=== PATIENT | female | born 1960 | race Caucasian/White ===

== ENCOUNTER → 2017-10-31 09:53 | Outpatient (CLI) | payer OTHER, SELFPAY ==
--- NOTE | 2017-10-31 10:04 | DI.RAD.S_ITS ---
PROCEDURE: XR KNEE RT 3V INDICATIONS: Right knee pain and swelling TECHNIQUE: L3 views of the knee were acquired. COMPARISON: None. FINDINGS: Bones: No fractures or dislocations. No suspicious bony lesions. Soft tissues: No joint effusion. No suspicious soft tissue calcifications. IMPRESSION: No acute radiographic findings. If pain persists, repeat study in 5-7 days is recommended to exclude occult fracture. Dictated by: Grecia Shabazz M.D. on 10/31/2017 at 10:33 Approved by: Grecia Shabazz M.D. on 10/31/2017 at 10:35
== END ==
PROVIDERS: PCP Family Medicine; Visit Provider Physician Assistant
DX: M25.461 Effusion, right knee (principal); M25.561 Pain in right knee
CPT/HCPCS: 73562

== ENCOUNTER → 2017-11-04 10:49 | Outpatient (CLI) | payer OTHER, SELFPAY ==
--- NOTE | 2017-11-04 | DI.MG.S_ITS ---
BILATERAL DIGITAL SCREENING MAMMOGRAM 3D/2D WITH CAD: 11/04/2017 CLINICAL: Routine screening. Family history of breast cancer. Comparison is made to exams dated: 10/30/2016 mammogram, 12/18/2014 mammogram - [facility], and 09/12/2013 mammogram - [facility]. The tissue of both breasts is heterogeneously dense. This may lower the sensitivity of mammography. Current study was also evaluated with a Computer Aided Detection (CAD) system. No significant masses, calcifications, or other findings are seen in either breast. There has been no significant interval change. IMPRESSION: NEGATIVE There is no mammographic evidence of malignancy. A 1 year screening mammogram is recommended. This exam was interpreted at Station ID: [id number]. NOTE: For mammograms, a report in lay terms will be sent to the patient. Approximately 15% of breast malignancies will not be visualized mammographically. In the management of a palpable breast mass, a negative mammogram must not discourage biopsy of a clinically suspicious lesion. Electronically Signed By: Dontrell casillas/mora:11/05/2017 01:20:44 copy to: RADHA PENG letter sent: Normal Exam ACR BI-RADS Category 1: Negative [id number]
== END ==
PROVIDERS: PCP Family Medicine; Visit Provider Family Medicine
DX: Z12.31 Encounter for screening mammogram for malignant neoplasm of breast (principal); Z80.3 Family history of malignant neoplasm of breast
CPT/HCPCS: 77063; 77067

== ENCOUNTER → 2017-11-05 08:37 | Outpatient (CLI) | payer OTHER, SELFPAY ==
--- NOTE | 2017-11-05 08:40 | DI.US.S_ITS ---
PROCEDURE: US PERIPH VENOUS LOW EXTREM RT INDICATIONS: right calf pain TECHNIQUE: Real-time imaging, as well as color and pulse Doppler interrogation, were performed of the lower extremity deep veins from the inguinal ligament to the popliteal fossa. COMPARISON: None. FINDINGS: The deep veins are normally compressible, and free of intraluminal thrombus. Color and pulse Doppler demonstrate normal phasic intraluminal flow. There is normal augmentation response to distal compression maneuver. IMPRESSION: No evidence of deep vein thrombosis involving the right lower extremity. Dictated by: Vivi Lopes MD, PhD on 11/05/2017 at 10:28 Approved by: Vivi Lopes MD, PhD on 11/05/2017 at 10:28
== END ==
PROVIDERS: PCP Family Medicine; Visit Provider Family Medicine
DX: M79.661 Pain in right lower leg (principal)
CPT/HCPCS: 93971

== ENCOUNTER → 2017-11-10 06:43 | Outpatient (CLI) | payer OTHER, SELFPAY ==
--- NOTE | 2017-11-10 06:44 | DI.MRI.S_ITS ---
PROCEDURE: MR KNEE RT WO CON INDICATIONS: painful back of right knee TECHNIQUE: Noncontrast sagittal PD fast spin echo and T2 fast spin echo with fat saturation, sagittal 3-D FLASH with fat saturation; coronal T1 spin echo and PD fast spin echo with fat saturation, and axial PD fast spin echo with fat saturation through the knee. COMPARISON: [facility], CR, XR KNEE RT 3V, 10/31/2017, 9:46. FINDINGS: Image quality: Excellent. Menisci: There is a flap tear involving the body and posterior horn of the lateral meniscus which extends to the superior articular surface. The medial meniscus demonstrates normal morphology and internal signal. The meniscal root ligaments appear intact. Cruciate ligaments: The anterior and posterior cruciate ligaments appear intact. Medial structures: The medial collateral ligament appears intact. The posterior oblique ligament, semimembranosus tendon insertions, oblique popliteal ligament, and meniscocapsular junction appear intact. Visualized portions of the pes anserinus tendons appear normal. No abnormal bursal fluid. Lateral structures: The lateral collateral ligament, long and short heads of the biceps femoris tendon appear intact. The popliteus tendon appears normal; the popliteofibular ligament appears intact. The posterosuperior and anteroinferior popliteomeniscal fascicles appear intact. The arcuate and fabellofibular ligaments appear intact, on either side of the lateral inferior geniculate artery. Iliotibial band appears normal. Anterior structures: The quadriceps and patellar tendons appear intact. Patellar alignment is normal. No femoral trochlear dysplasia or ventral trochlear prominence. No edema in the infrapatellar fat pad. Bones and cartilage: No bone marrow contusions or fractures. The cartilage of the medial and lateral femorotibial compartments appears normal in thickness. Thinning and fissuring of the articular cartilage of the medial facet of the patella. Joint space: There is trace joint effusion. Small popliteal cyst. Normal appearing synovial plicae are incidentally noted. IMPRESSION: 1. Lateral meniscus tear. 2. Trace joint effusion. 3. Small popliteal cyst. 4. Articular cartilage degenerative changes involving the medial facet of the patella. Dictated by: Vivi Lopes MD, PhD on 11/10/2017 at 11:33 Approved by: Vivi Lopes MD, PhD on 11/12/2017 at 7:20
== END ==
PROVIDERS: PCP Family Medicine; Visit Provider Family Medicine
DX: M25.561 Pain in right knee (principal); S83.281A Other tear of lateral meniscus, current injury, right knee, initial encounter; M71.21 Synovial cyst of popliteal space [Baker], right knee
CPT/HCPCS: 73721

== ENCOUNTER → 2018-04-06 09:16 | Outpatient (CLI) | payer OTHER, SELFPAY ==
--- NOTE | 2018-04-06 09:19 | DI.RAD.S_ITS ---
PROCEDURE: XR FOOT LT MIN 3V INDICATIONS: left middle toe/foot pain TECHNIQUE: 3 views of the foot were acquired. COMPARISON: None. FINDINGS: Bones: No fractures or dislocations. No suspicious bony lesions. Mild interphalangeal degenerative spurring. Soft tissues: No tibiotalar joint effusion. Achilles tendon appears normal. IMPRESSION: No fracture. If the patient's symptoms persist, further assessment with MRI can be performed. Dictated by: Wolf Hagen M.D. on 04/06/2018 at 9:54 Approved by: Wolf Hagen M.D. on 04/06/2018 at 9:56
== END ==
PROVIDERS: PCP Family Medicine; Visit Provider Family Medicine
DX: M79.672 Pain in left foot (principal)
CPT/HCPCS: 73630

== ENCOUNTER → 2018-06-22 11:28 | Outpatient (CLI) | payer OTHER, SELFPAY ==
[2018-06-24 17:28] LABS: Fecal Immunochemical Test NOT DETECTED (NOT DETECTED)
== END ==
PROVIDERS: PCP Family Medicine; Visit Provider Family Medicine
DX: Z12.11 Encounter for screening for malignant neoplasm of colon (principal)
CPT/HCPCS: 82274

== ENCOUNTER → 2018-09-20 13:43 | Outpatient (CLI) | payer OTHER, SELFPAY | PROVIDERS: PCP Family Medicine; Visit Provider Registered Nurse | DX: M81.0 Age-related osteoporosis without current pathological fracture (principal); M85.852 Other specified disorders of bone density and structure, left thigh; M85.851 Other specified disorders of bone density and structure, right thigh; Z78.0 Asymptomatic menopausal state | CPT/HCPCS: 77080 ==

== ENCOUNTER → 2018-12-03 13:22 | Outpatient (CLI) | payer OTHER, SELFPAY ==
--- NOTE | 2018-12-03 13:25 | DI.RAD.S_ITS ---
PROCEDURE: XR ELBOW LT MIN 3V INDICATIONS: left elbow pain TECHNIQUE: 3 views of the elbow were acquired. COMPARISON: None. FINDINGS: Bones: No fractures or dislocations. No suspicious bony lesions. Chronic spurring seen at the common extensor origin Soft tissues: No elbow joint effusion. No suspicious soft tissue calcifications. IMPRESSION: No fracture. Findings suggest chronic lateral epicondylitis syndrome Dictated by: Wolf Hagen M.D. on 12/03/2018 at 16:43 Approved by: Wolf Hagen M.D. on 12/03/2018 at 16:44
== END ==
PROVIDERS: PCP Family Medicine; Visit Provider Family Medicine
DX: M25.522 Pain in left elbow (principal)
CPT/HCPCS: 73080

== ENCOUNTER → 2018-12-13 15:27 | Outpatient (CLI) | payer OTHER, SELFPAY ==
--- NOTE | 2018-12-13 | DI.MG.S_ITS ---
BILATERAL DIGITAL SCREENING MAMMOGRAM 3D/2D WITH CAD: 12/13/2018 CLINICAL: Routine screening. Family history of breast cancer. Comparison is made to exams dated: 11/04/2017 mammogram, 10/30/2016 mammogram, 12/18/2014 mammogram - [facility], and 09/12/2013 mammogram - [facility]. The tissue of both breasts is heterogeneously dense. This may lower the sensitivity of mammography. Current study was also evaluated with a Computer Aided Detection (CAD) system. No significant masses, calcifications, or other findings are seen in either breast. There has been no significant interval change. IMPRESSION: NEGATIVE There is no mammographic evidence of malignancy. A 1 year screening mammogram is recommended. This exam was interpreted at Station ID: [id number]. NOTE: For mammograms, a report in lay terms will be sent to the patient. Approximately 15% of breast malignancies will not be visualized mammographically. In the management of a palpable breast mass, a negative mammogram must not discourage biopsy of a clinically suspicious lesion. Electronically Signed By: Dontrell casillas/mora:12/13/2018 19:10:13 letter sent: Normal Exam ACR BI-RADS Category 1: Negative [id number]
== END ==
PROVIDERS: PCP Family Medicine; Visit Provider Family Medicine
DX: Z12.31 Encounter for screening mammogram for malignant neoplasm of breast (principal); Z80.3 Family history of malignant neoplasm of breast
CPT/HCPCS: 77063; 77067

== ENCOUNTER → 2019-06-16 09:28 | Outpatient (CLI) | payer OTHER, SELFPAY ==
--- NOTE | 2019-06-16 09:30 | DI.RAD.S_ITS ---
PROCEDURE: XR LUMBAR SPINE 2-3V INDICATIONS: low back pain TECHNIQUE: 3 views of the lumbar spine were acquired. COMPARISON: [facility], [place], XR HIP W PEL IF DONE LT 2V, 06/16/2019, 9:27. [facility], HA, L-SPINE 2-3 VIEWS, 12/30/2016, 10:59. FINDINGS: Bones: 5 [id number] vertebrae are present. Minimal dextroconvex cervical lumbar scoliotic curvature is seen. No focal AP alignment abnormality is seen. No vertebral body compression fractures. No suspicious bony lesions. The disc heights are well-preserved. Lower lumbar spine facet arthropathy is seen. Soft tissues: Overlying bowel gas pattern is normal. No suspicious soft tissue calcifications. Hypodense material can be seen within the stomach. IMPRESSION: Mild, age-appropriate degenerative changes are seen, with lower lumbar spine facet arthropathy. Dictated by: Josr Noriega M.D. on 06/16/2019 at 8:58 Approved by: Josr Noriega M.D. on 06/16/2019 at 8:59
--- NOTE | 2019-06-16 09:30 | DI.RAD.S_ITS ---
PROCEDURE: XR HIP W PEL IF DONE LT 2V INDICATIONS: left hip pain TECHNIQUE: AP pelvis with lateral view(s) of the left hip(s). COMPARISON: [facility], HA, XR LUMBAR SPINE 2-3V, 06/16/2019, 9:27. [facility], HA, L-SPINE 2-3 VIEWS, 12/30/2016, 10:59. (A prior pelvis plain film from 2008 is not available from the archive at the time of this dictation.) FINDINGS: Bones: No fractures or dislocations. Pelvic ring appears intact. No suspicious bony lesions. There is mild superior joint space narrowing seen of the left hip, with associated remodeling changes with subchondral sclerosis and osteophyte formation. Soft tissues: The visualized bowel gas pattern is normal. No suspicious soft tissue calcifications. IMPRESSION: Mild degenerative change. Dictated by: Josr Noriega M.D. on 06/16/2019 at 8:51 Approved by: Josr Noriega M.D. on 06/16/2019 at 8:58
== END ==
PROVIDERS: PCP Family Medicine; Referring Provider Family Medicine; Visit Provider Family Medicine
DX: M25.552 Pain in left hip (principal); M54.5 Low back pain; M47.816 Spondylosis without myelopathy or radiculopathy, lumbar region
CPT/HCPCS: 72100; 73502

== ENCOUNTER → 2019-08-12 07:32 | Outpatient (CLI) | payer OTHER, SELFPAY ==
[2019-08-12 08:09] LABS: Add Manual Diff / Slide Review NO; Basophils Absolute Auto 0 /uL (0-100); Basophils Percent Auto 0.5 % (0-2); Eosinophils Absolute Auto 100 /uL (0-450); Eosinophils Percent Auto 2.2 % (2-4); Hematocrit 39.8 % (36-46); Hemoglobin 13.8 g/dL (12.0-16.0); Lymphocytes Absolute Auto 2100 /uL (1100-4500); Lymphocytes Percent Auto 43.9 % (25-40); Mean Corpuscular HGB Conc 34.7 % (30-36); Mean Corpuscular Hemoglobin 31.2 PG (26-34); Mean Corpuscular Volume 89.8 fL (80-100); Monocytes Absolute Auto 300 /uL (0-900); Monocytes Percent Auto 6.4 % (3-14); Neutrophils Absolute Auto 2300 /uL (1500-7000); Platelet Count 157 X10^3/uL (150-400); Red Blood Cell Count 4.43 X10^6/uL (4.0-5.2); Red Cell Distribution Width 13.2 % (11.6-14.8); White Blood Cell Count 4.8 X10^3/uL (4.5-11.0)
[2019-08-12 08:27] LABS: Alanine Aminotransferase 18 IU/L (<35); Albumin 4.6 g/dL (3.5-5.0); Albumin Globulin Ratio 1.4 (1.0-2.8); Alkaline Phosphatase 66 U/L (38-126); Aspartate Aminotransferase 28 IU/L (14-36); BUN Creatinine Ratio 19.1 (6-22); Bilirubin Total 0.6 mg/dL (0.2-1.3); Blood Urea Nitrogen 13 mg/dL (7-17); Calcium 9.3 mg/dL (8.4-10.2); Carbon Dioxide 29 mmol/L (22-32); Chloride 103 mmol/L (98-107); Cholesterol 224 mg/dL (140-199); Estimated Glomerular Filt Rate > 60.0 mL/min (>60); Globulin 3.4 g/dL (1.7-4.1); Glucose 93 mg/dL (80-110); HDL Cholesterol 90 mg/dL (40-60); HEMOLYSIS < 15 (0-50); LDL Cholesterol Calculated 115 mg/dL (<100); Potassium 4.1 mmol/L (3.4-5.1); Sodium 139 mmol/L (137-145); Triglycerides 95 mg/dL (35-150)
[2019-08-12 09:35] LABS: Thyroid Stimulating Hormone 1.35 uIU/mL (0.47-4.68)
== END ==
PROVIDERS: PCP Family Medicine; Referring Provider Family Medicine; Visit Provider Family Medicine
DX: G89.29 Other chronic pain (principal); M54.5 Low back pain
CPT/HCPCS: 36415; 80053; 80061; 84443; 85025

== ENCOUNTER → 2019-08-15 13:54 | Outpatient (CLI) | payer OTHER, SELFPAY ==
[2019-08-16 14:36] LABS: Fecal Immunochemical Test Negative (Negative)
== END ==
PROVIDERS: PCP Family Medicine; Referring Provider Family Medicine; Visit Provider Family Medicine
DX: G89.29 Other chronic pain (principal); M54.5 Low back pain
CPT/HCPCS: 82274

== ENCOUNTER → 2019-09-05 11:38 | Outpatient (CLI) | payer OTHER, SELFPAY ==
--- NOTE | 2019-09-05 11:40 | DI.MRI.S_ITS ---
PROCEDURE: MR LUMBAR SPINE WO CON INDICATIONS: Pain TECHNIQUE: Noncontrast sagittal T1 spin echo and T2 fast echo, sagittal STIR, axial T1 and T2 fast spin echo through the lumbar spine. In cases with scoliosis, additional coronal T2 fast spin echo may be performed. COMPARISON: [facility], CR, XR LUMBAR SPINE 2-3V, 06/16/2019, 9:27. FINDINGS: Image quality: Excellent. Alignment and Curvature: 5 lumbar type vertebral bodies are present by plain film. Mild grade 1 retrolisthesis of L1 on L2, L2 on L3, L3 on L4, L4-L5, and L5 on S1. Bone Marrow: Marrow is of normal overall signal. No acute vertebral body compression fractures. There is minimal reactive signal within the endplates adjacent to the the L1-L2, L2-L3, L3-L4, and L4-L5 intervertebral discs. T11 and T12 hemangiomata. Spinal Cord: Conus medullaris terminates at the L2-L3 disc space level. Visualized cord demonstrates normal signal and size. Paraspinous Soft Tissues: No paravertebral masses. L1-L2: Mild disc height loss and desiccation. Mild diffuse disc bulge. Mild facet and ligamentum flavum hypertrophy. Mild canal stenosis. No foraminal stenosis. L2-L3: Mild disc desiccation. Mild diffuse disc bulge. Mild facet and ligamentum flavum hypertrophy. Mild canal stenosis. Mild bilateral foraminal stenosis. L3-L4: Mild disc desiccation and diffuse disc bulge. Mild facet and ligamentum flavum hypertrophy. Mild epidural lipomatosis. Mild canal stenosis. Mild bilateral foraminal stenosis. L4-L5: Mild disc desiccation a diffuse disc bulge. Mild facet and ligamentum flavum hypertrophy. Mild epidural lipomatosis. Mild canal stenosis. Mild bilateral foraminal stenosis. L5-S1: Mild diffuse disc bulge. Mild bilateral facet hypertrophy. Mild canal stenosis. Mild bilateral foraminal stenosis. IMPRESSION: 1. Multilevel degenerative disc and facet disease, as well as ligamentum flavum hypertrophy and epidural lipomatosis. 2. Mild multilevel canal and foraminal stenoses. No neural impingement. Dictated by: Macy Wolfe M.D. on 09/05/2019 at 12:50 Approved by: Macy Wolfe M.D. on 09/05/2019 at 13:13
== END ==
PROVIDERS: PCP Family Medicine; Referring Provider Family Medicine; Visit Provider Family Medicine
DX: M54.5 Low back pain (principal); M51.36 Other intervertebral disc degeneration, lumbar region; M48.061 Spinal stenosis, lumbar region without neurogenic claudication; E88.2 Lipomatosis, not elsewhere classified; G89.29 Other chronic pain
CPT/HCPCS: 72148

== ENCOUNTER → 2019-10-05 13:11 | Outpatient (CLI) | payer OTHER, SELFPAY | PROVIDERS: PCP Family Medicine; Referring Provider Family Medicine; Visit Provider Family Medicine | DX: M81.0 Age-related osteoporosis without current pathological fracture (principal); Z78.0 Asymptomatic menopausal state; Z82.62 Family history of osteoporosis; Z87.891 Personal history of nicotine dependence | CPT/HCPCS: 77080 ==

== ENCOUNTER 2019-11-09 09:45 | Outpatient (RCR) | payer OTHER, SELFPAY ==
--- NOTE | 2019-09-28 16:38 | PT.OIE ---
Current Diagnoses Low back pain (09/28/19) Weakness (09/28/19) Past Surgical History History of third molar tooth extraction History of tonsillectomy Visit Care Team Role Provider Type Jim Galdamez MD Attending Provider Physician Primary Care Provider Referring Provider Specialty: Family Practice Address: [address] [place] [address], [id number] Email: [email or web address] Physical Therapy Initial Evaluation PT-OP-A Visit Information Start: 09/28/19 10:36 Freq: Status: Active Protocol: Document 09/28/19 13:58 AW (Rec: 09/28/19 14:13 AW [email or web address]) Out-Patient Physical Therapy Visit Information Visit Information Visit Type Initial Evaluation Visit Start Time 10:30 Visit Stop Time 11:15 Total Visit Minutes 45 Visit Number 03/26 Evaluation Information Evaluation Date 09/28/19 Precautions Precautions osteoporosis PT-OP-B Current Condition Start: 09/28/19 10:36 Freq: Status: Active Protocol: Document 09/28/19 13:58 AW (Rec: 09/28/19 14:13 AW [email or web address]) Current Condition History of Current Condition Onset Date June 2019 Current Complaints low back pain, left hip pain History of Current Condition Hannah describes years of intermittent back pain which seems to be increasing in intensity and frequency. She states that she gets a sharp, grabbing pain which is often the beginning of being fairly incapacitated for 4-14 days. Just two days ago, she was reaching sideways toward her spouse who pulled her toward him for a hug and she felt the sharp, grabbing pain. Typically, this would have made it difficult for her to get in and out of bed, on and off the toilet for at least four days with limited capacity for up to two weeks. This recent event has had been less painful. The sharp pain is as bad as 9/10. She presents today with manageable 2/10 pain. Sitting is most problematic. If she sits too long, changing position is difficult and painful. Prior Treatments and Tests MRI 09/05/19: 1. Multilevel degenerative disc and facet disease, as well as ligamentum flavum hypertrophy and epidural lipomatosis. 2. Mild multilevel canal and foraminal stenoses. No neural impingement. Future Testing and Treatments Planned none identified Treatment Goals Patient/Caregiver Goals Pt hopes to be able to participate in dancing classes with increased confidence and less pain. She and her spouse purchased a travel trailer and hope to travel more but her sitting tolerance is limited. Prior Functional Status Baseline Function- ADL's Independent Baseline Function- Mobility Independent Baseline Function- Gait IND no device Baseline Function- Recreation/Hobbies Pt does regular stretches for her low back and hips. Pt could sit for several hours prior to injury. Current Functional Impairments (Reported) Functional Limitations- ADL's Difficulty with toilet transfers during painful episodes Functional Limitations- Mobility/Gait Difficulty with bed mobility during painful episodes. Functional Limitations- Recreation/ Pt unable to sit >30 minutes Hobbies due to increased pain. PT-OP-C Subjective Start: 09/28/19 10:36 Freq: Status: Active Protocol: Document 09/28/19 13:58 AW (Rec: 09/28/19 14:13 AW [email or web address]) Patient Questionnaires Oswestry Low Back Index Oswestry Score 36 Oswestry Impairment 20 to 39% Impaired (Score 20- 39) OP-PT Pain Assessment Pain Assessment Grid Paper Pain Assessment Grid Completed Yes Location low back and left hip Pain Location Details low back, left hip Intensity 2 Scale Used Numeric (0 - 10) Pain Aggravating Factors Position,Changing Position, Sitting Pain Alleviating Factors Cold,Heat PT-OP-D Balance Start: 09/28/19 10:36 Freq: Status: Active Protocol: Document 09/28/19 16:07 AW (Rec: 09/28/19 16:37 AW [email or web address]) OP-PT Balance Assessment Sitting Balance Static Sitting Balance Ability Normal Dynamic Sitting Balance Ability Normal Standing Balance Static Standing Balance Ability Normal Dynamic Standing Balance Ability Normal Balance Tests Single Limb Standing Single Limb- Right 20 sec Single Limb- Left 20 sec [place] Fall Scale Copyright Permission PT-OP-F Manual Assessment Start: 09/28/19 10:36 Freq: Status: Active Protocol: Document 09/28/19 16:07 AW (Rec: 09/28/19 16:37 AW [email or web address]) Manual Assessments Soft Tissue Assessment Soft Tissue Mobility Assessment Hypertonicity of bilateral paraspinals ~L2, L3. Tight gluteals left hip Joint Mobility Assessment Joint Mobility Assessment Hypomobility of lower lumbar segments on assessment of A/P glides PT-OP-H Neuro Start: 09/28/19 10:36 Freq: Status: Active Protocol: Document 09/28/19 16:07 AW (Rec: 09/28/19 16:37 AW [email or web address]) Sensation Evaluation Gross Sensation Gross Sensation WNL Deep Tendon Reflex & Clonus Assessment Deep Tendon Reflex Bilateral Achilles Deep Tendon Reflex 2+ Normal Bilateral Patellar Deep Tendon Reflex 2+ Normal PT-OP-K Range of Motion Start: 09/28/19 10:36 Freq: Status: Active Protocol: Document 09/28/19 16:07 AW (Rec: 09/28/19 16:37 AW [email or web address]) Lumbar Spine Range of Motion Lumbar Spine Active Degrees Testing Position Standing Flexion 65 Extension 10 Comments Lateral flexion with fingertips to 5 above knee joint line bilaterally. 80% of normal rotation in standing and seated. Hip Goniometric Range of Motion Hip Right Active Hip ROM WFL Yes Hip ROM Limitations Comments AROM and PROM WNL bilaterally with no imblance of external and internal rotation. PT-OP-L Special Tests Start: 09/28/19 10:36 Freq: Status: Active Protocol: Document 09/28/19 16:07 AW (Rec: 09/28/19 16:37 AW [email or web address]) Special Tests Lumbar Spine Special Tests Other- 1 Test Results distraction - relieving Homero Test Results negative for hip flexor involvement bilaterally Straight Leg Raise Test Results able to perform without pain provocation Compression Test Results slightly provocative Hip Special Tests Scour Test Test Results negative bilaterally PT-OP-M Strength Start: 09/28/19 10:36 Freq: Status: Active Protocol: Document 09/28/19 16:07 AW (Rec: 09/28/19 16:37 AW [email or web address]) Hip Strength Hip Manual Muscle Testing Left Flexion (L2) 4 Good Extension (S1) 4- Good- Abduction 4- Good- Adduction 4- Good- External Rotation 4+ Good+ Internal Rotation 4+ Good+ Comments R LE tested same as left Knee Strength Knee Manual Muscle Testing Left Flexion (S2) 4+ Good+ Extension (L3) 5 Normal PT-OP-Q Treatments Start: 09/28/19 10:36 Freq: Status: Active Protocol: Document 09/28/19 16:07 AW (Rec: 09/28/19 16:37 AW [email or web address]) Therapeutic Exercises Prone Exercises child's pose Prone Exercise Name child's popse Reps/Minutes 30 sec x 4 Comments cues to walk hands left and right for more specific stretch Sitting Exercises seated triceps extension Sitting Exercise Name seated triceps extension Reps/Minutes 5 sec hold x 10 Comments for lumbar distraction in sitting scapular retraction Sitting Exercise Name scapular retraction Reps/Minutes 10 reps Comments for focus on sitting posture to improve sitting tolerance PT-OP-T Assessment and Plan Start: 09/28/19 10:36 Freq: Status: Active Protocol: Document 09/28/19 16:07 AW (Rec: 09/28/19 16:37 AW [email or web address]) Physical Therapy Assessment Rehab Potential Rehabilitation Potential Good Evaluation Complexity Number of Personal Factors/Comorbidities 1-2 Number of Body Systems Impaired 1-2 Clinical Presentation at Evaluation Stable Impairments Impairments Activity Tolerance,Functional Activities,Functional Mobility ,Gait,Pain,Posture,Soft Tissue Mobility,Strength Other Impairments osteoporosis Goals Four Impairment impaired daily function Short Term Goal (STG) Pt will score 30 or less on modified Oswestry to demonstrate improved daily function STG Duration 10/26/19 Alf Goal (LTG) Pt will score 20 or less on modified Oswestry to demonstrate improved daily function LTG Duration 12/21/19 Three Impairment Pt unable to tolerate sitting long periods Short Term Goal (STG) Pt will be able to sit 30 minutes without increase in pain >1 point on 10-point scale STG Duration 10/26/19 [employer] Goal (LTG) Pt will be able to sit 60 minutes without increase in pain >1 point on 10-point scale LTG Duration 12/21/19 Two Impairment Pt unable to participate in hiking as she would like Short Term Goal (STG) Pt will hike 1/2 mile on uneven terrain without increase in pain >1 point on 10-point scale STG Duration 10/26/19 Alf Goal (LTG) Pt will hike 2 miles on uneven terrain without increase in pain >1 point on 10-point scale LTG Duration 12/21/19 One Impairment Pt has limited HEP Short Term Goal (STG) Pt will be independent with HEP for support of therapy services provided in clinic STG Duration 10/26/19 [employer] Goal (LTG) Pt will be independent with maintenance HEP. LTG Duration 12/21/19 Assessment Summary Assessment Hannah is a 59 yo woman who presents to outpatient PT as a low-complexity evaluation with complaint of fairly irritable low back pain. She describes distinct episodes of pain which render her less independent with self care and decrease her independent mobility. On evaluation, her hip mobility is within normal limits; lower lumbar segments are hypomobile on A/P assessment. Strength in bilateral hips is impaired. Pt would benefit from outpatient PT to address strength impairments and to increase mobility of lumbar segments for reduction of pain symptoms and return to desired activities. Physical Therapy Plan Frequency and Duration Frequency of Treatment 1-2x/week Duration of Treatment 12 weeks Plan of Care Start Date 09/28/19 Plan of Care End Date 12/21/19 Therapeutic Interventions Therapeutic Interventions Balance Training,Gait Training ,Home Exercise Program,Joint Mobilizations,Manual Therapy, Neuromuscular Re-education, Patient/Caregiver Education, Self-Care/Home Management,Soft Tissue Mobilization, Therapeutic Activities, Therapeutic Exercises Modalities Cold Pack/Ice Massage,Hot Packs Next Visit Focus/Plan Next Note Type Treatment Note Next Visit Plan assess response to HEP; STM for lumbar paraspinals and gluteals; initiate strength training for bilateral hips
--- NOTE | 2019-09-28 16:38 | PT.OPPOC ---
Physical, Occupational & Speech Therapy At [facility] Current Diagnoses Low back pain (09/28/19) Weakness (09/28/19) Visit Care Team Role Provider Type Jim Galdamez MD Attending Provider Physician Primary Care Provider Referring Provider Specialty: Family Practice Address: [address] [place] [address], [id number] Email: [email or web address] Plan Of Care PT-OP-T Assessment and Plan Start: 09/28/19 10:36 Freq: Status: Active Protocol: Document 09/28/19 16:07 AW (Rec: 09/28/19 16:37 AW [email or web address]) Physical Therapy Assessment Rehab Potential Rehabilitation Potential Good Evaluation Complexity Number of Personal Factors/Comorbidities 1-2 Number of Body Systems Impaired 1-2 Clinical Presentation at Evaluation Stable Impairments Impairments Activity Tolerance,Functional Activities,Functional Mobility ,Gait,Pain,Posture,Soft Tissue Mobility,Strength Other Impairments osteoporosis Goals Four Impairment impaired daily function Short Term Goal (STG) Pt will score 30 or less on modified Oswestry to demonstrate improved daily function STG Duration 10/26/19 Half-Way Goal (LTG) Pt will score 20 or less on modified Oswestry to demonstrate improved daily function LTG Duration 12/21/19 Three Impairment Pt unable to tolerate sitting long periods Short Term Goal (STG) Pt will be able to sit 30 minutes without increase in pain >1 point on 10-point scale STG Duration 10/26/19 Employment Specialist Goal (LTG) Pt will be able to sit 60 minutes without increase in pain >1 point on 10-point scale LTG Duration 12/21/19 Two Impairment Pt unable to participate in hiking as she would like Short Term Goal (STG) Pt will hike 1/2 mile on uneven terrain without increase in pain >1 point on 10-point scale STG Duration 10/26/19 Half-Way Goal (LTG) Pt will hike 2 miles on uneven terrain without increase in pain >1 point on 10-point scale LTG Duration 12/21/19 One Impairment Pt has limited HEP Short Term Goal (STG) Pt will be independent with HEP for support of therapy services provided in clinic STG Duration 10/26/19 Employment Specialist Goal (LTG) Pt will be independent with maintenance HEP. LTG Duration 12/21/19 Assessment Summary Assessment Hannah is a 59 yo woman who presents to outpatient PT as a low-complexity evaluation with complaint of fairly irritable low back pain. She describes distinct episodes of pain which render her less independent with self care and decrease her independent mobility. On evaluation, her hip mobility is within normal limits; lower lumbar segments are hypomobile on A/P assessment. Strength in bilateral hips is impaired. Pt would benefit from outpatient PT to address strength impairments and to increase mobility of lumbar segments for reduction of pain symptoms and return to desired activities. Physical Therapy Plan Frequency and Duration Frequency of Treatment 1-2x/week Duration of Treatment 12 weeks Plan of Care Start Date 09/28/19 Plan of Care End Date 12/21/19 Therapeutic Interventions Therapeutic Interventions Balance Training,Gait Training ,Home Exercise Program,Joint Mobilizations,Manual Therapy, Neuromuscular Re-education, Patient/Caregiver Education, Self-Care/Home Management,Soft Tissue Mobilization, Therapeutic Activities, Therapeutic Exercises Modalities Cold Pack/Ice Massage,Hot Packs Next Visit Focus/Plan Next Note Type Treatment Note Next Visit Plan assess response to HEP; STM for lumbar paraspinals and gluteals; initiate strength training for bilateral hips Plan of Care Dates Plan of Care Start Date 09/28/19 Plan of Care End Date 12/21/19 Electronically Signed by: Vanessa Wilks, PT 09/28/19 [id number] Please Sign and Return: I have reviewed this Plan of Care and certify that the skilled therapy services above are required to meet the patient?s needs. Physician Signature Date Printed Name and Credentials Clinical Instructor Signature Printed Name and Credentials
--- NOTE | 2019-09-30 11:25 | PT.OTN ---
Current Diagnoses Low back pain (09/30/19) Weakness (09/30/19) Physical Therapy Treatment Note PT-OP-A Visit Information Start: 09/28/19 10:36 Freq: Status: Active Protocol: Document 09/30/19 10:38 SP (Rec: 09/30/19 11:34 SP [id number]) Out-Patient Physical Therapy Visit Information Visit Information Visit Type Treatment Note Visit Start Time 10:38 Visit Stop Time 11:25 Total Visit Minutes 47 Visit Number 04/26 Number of SPEECH AND DRAMA TEACHER Visits 1 PT-OP-B Current Condition Start: 09/28/19 10:36 Freq: Status: Active Protocol: Document 09/28/19 13:58 AW (Rec: 09/28/19 14:13 AW [email or web address]) Current Condition History of Current Condition Onset Date June 2019 Current Complaints low back pain, left hip pain History of Current Condition Hannah describes years of intermittent back pain which seems to be increasing in intensity and frequency. She states that she gets a sharp, grabbing pain which is often the beginning of being fairly incapacitated for 4-14 days. Just two days ago, she was reaching sideways toward her spouse who pulled her toward him for a hug and she felt the sharp, grabbing pain. Typically, this would have made it difficult for her to get in and out of bed, on and off the toilet for at least four days with limited capacity for up to two weeks. This recent event has had been less painful. The sharp pain is as bad as 9/10. She presents today with manageable 2/10 pain. Sitting is most problematic. If she sits too long, changing position is difficult and painful. Prior Treatments and Tests MRI 09/05/19: 1. Multilevel degenerative disc and facet disease, as well as ligamentum flavum hypertrophy and epidural lipomatosis. 2. Mild multilevel canal and foraminal stenoses. No neural impingement. Future Testing and Treatments Planned none identified Treatment Goals Patient/Caregiver Goals Pt hopes to be able to participate in dancing classes with increased confidence and less pain. She and her spouse purchased a travel trailer and hope to travel more but her sitting tolerance is limited. Prior Functional Status Baseline Function- ADL's Independent Baseline Function- Mobility Independent Baseline Function- Gait IND no device Baseline Function- Recreation/Hobbies Pt does regular stretches for her low back and hips. Pt could sit for several hours prior to injury. Current Functional Impairments (Reported) Functional Limitations- ADL's Difficulty with toilet transfers during painful episodes Functional Limitations- Mobility/Gait Difficulty with bed mobility during painful episodes. Functional Limitations- Recreation/ Pt unable to sit >30 minutes Hobbies due to increased pain. PT-OP-C Subjective Start: 09/28/19 10:36 Freq: Status: Active Protocol: Document 09/30/19 10:38 SP (Rec: 09/30/19 11:34 SP [id number]) OP-PT Subjective Patient Comments Patient Comments Pt reported L knee little sore after last eval assessment during tx, has a meniscus issue. B glut medius and LB sore/ tightness today and wanting to address this area. PT-OP-D Balance Start: 09/28/19 10:36 Freq: Status: Active Protocol: Document 09/28/19 16:07 AW (Rec: 09/28/19 16:37 AW [email or web address]) OP-PT Balance Assessment Sitting Balance Static Sitting Balance Ability Normal Dynamic Sitting Balance Ability Normal Standing Balance Static Standing Balance Ability Normal Dynamic Standing Balance Ability Normal Balance Tests Single Limb Standing Single Limb- Right 20 sec Single Limb- Left 20 sec Saldana Fall Scale Copyright Permission PT-OP-F Manual Assessment Start: 09/28/19 10:36 Freq: Status: Active Protocol: Document 09/28/19 16:07 AW (Rec: 09/28/19 16:37 AW [email or web address]) Manual Assessments Soft Tissue Assessment Soft Tissue Mobility Assessment Hypertonicity of bilateral paraspinals ~L2, L3. Tight gluteals left hip Joint Mobility Assessment Joint Mobility Assessment Hypomobility of lower lumbar segments on assessment of A/P glides PT-OP-H Neuro Start: 09/28/19 10:36 Freq: Status: Active Protocol: Document 09/28/19 16:07 AW (Rec: 09/28/19 16:37 AW [email or web address]) Sensation Evaluation Gross Sensation Gross Sensation WNL Deep Tendon Reflex & Clonus Assessment Deep Tendon Reflex Bilateral Achilles Deep Tendon Reflex 2+ Normal Bilateral Patellar Deep Tendon Reflex 2+ Normal PT-OP-K Range of Motion Start: 09/28/19 10:36 Freq: Status: Active Protocol: Document 09/28/19 16:07 AW (Rec: 09/28/19 16:37 AW [email or web address]) Lumbar Spine Range of Motion Lumbar Spine Active Degrees Testing Position Standing Flexion 65 Extension 10 Comments Lateral flexion with fingertips to 5 above knee joint line bilaterally. 80% of normal rotation in standing and seated. Hip Goniometric Range of Motion Hip Right Active Hip ROM WFL Yes Hip ROM Limitations Comments AROM and PROM WNL bilaterally with no imblance of external and internal rotation. PT-OP-L Special Tests Start: 09/28/19 10:36 Freq: Status: Active Protocol: Document 09/28/19 16:07 AW (Rec: 09/28/19 16:37 AW [email or web address]) Special Tests Lumbar Spine Special Tests Other- 1 Test Results distraction - relieving Homero Test Results negative for hip flexor involvement bilaterally Straight Leg Raise Test Results able to perform without pain provocation Compression Test Results slightly provocative Hip Special Tests Scour Test Test Results negative bilaterally PT-OP-M Strength Start: 09/28/19 10:36 Freq: Status: Active Protocol: Document 09/28/19 16:07 AW (Rec: 09/28/19 16:37 AW [email or web address]) Hip Strength Hip Manual Muscle Testing Left Flexion (L2) 4 Good Extension (S1) 4- Good- Abduction 4- Good- Adduction 4- Good- External Rotation 4+ Good+ Internal Rotation 4+ Good+ Comments R LE tested same as left Knee Strength Knee Manual Muscle Testing Left Flexion (S2) 4+ Good+ Extension (L3) 5 Normal PT-OP-Q Treatments Start: 09/28/19 10:36 Freq: Status: Active Protocol: Document 09/30/19 10:38 SP (Rec: 09/30/19 11:34 SP [id number]) Therapeutic Exercises Supine Exercises Glut stretch/Fig 4 Supine Exercise Name hip ER/ IR Side bilateral Reps/Minutes 30 Sec x2 Comments discussed and performed supine and sitting positions SKTC Supine Exercise Name stretch Reps/Minutes 30 sec hold x2 BLE core single knee fall out Reps/Minutes 2x5 alternating BLE core march Reps/Minutes 2x5 alternating BLE Comments cued PPT, slow muscular control Tr ab trng, PPT, neutral pelvis Reps/Minutes 4 min total pec stretch Reps/Minutes 30 x2 Prone Exercises child's pose Prone Exercise Name child's popse Reps/Minutes 30 sec x 4 Comments cues to walk hands left and right for more specific stretch Sitting Exercises scapular retraction Sitting Exercise Name scapular retraction Reps/Minutes 10 reps Comments for focus on sitting posture to improve sitting tolerance Other Exercises self STMs to glut med, ES standing at wall Other Exercise Name standing Side bilateral Equipment Used racquet ball on wall lean into Reps/Minutes 4 min total of all areas Comments cued proper set up and lean in toleranane PT-OP-T Assessment and Plan Start: 09/28/19 10:36 Freq: Status: Active Protocol: Document 09/30/19 10:38 SP (Rec: 09/30/19 11:34 SP [id number]) Physical Therapy Assessment Goals Four Impairment impaired daily function Short Term Goal (STG) Pt will score 30 or less on modified Oswestry to demonstrate improved daily function STG Duration 10/26/19 Snf Goal (LTG) Pt will score 20 or less on modified Oswestry to demonstrate improved daily function LTG Duration 12/21/19 Three Impairment Pt unable to tolerate sitting long periods Short Term Goal (STG) Pt will be able to sit 30 minutes without increase in pain >1 point on 10-point scale STG Duration 10/26/19 Teacher Tutor Goal (LTG) Pt will be able to sit 60 minutes without increase in pain >1 point on 10-point scale LTG Duration 12/21/19 Two Impairment Pt unable to participate in hiking as she would like Short Term Goal (STG) Pt will hike 1/2 mile on uneven terrain without increase in pain >1 point on 10-point scale STG Duration 10/26/19 Teacher Tutor Goal (LTG) Pt will hike 2 miles on uneven terrain without increase in pain >1 point on 10-point scale LTG Duration 12/21/19 One Impairment Pt has limited HEP Short Term Goal (STG) Pt will be independent with HEP for support of therapy services provided in clinic STG Duration 10/26/19 Teacher Tutor Goal (LTG) Pt will be independent with maintenance HEP. LTG Duration 12/21/19 Assessment Summary Assessment Reviewed HEP and initiated self STMs using ball at wall glut/PF/ES to decrease tightness pressure and time done to tolerance and not over doing it. Added basic core strengthening and flexibility LS and hip to decrease tightness reported upon arrival and core stabilization and strengthening with good feedback results. Provided hand outs for self set up and recall for proper form with cues given today. Physical Therapy Plan Frequency and Duration Frequency of Treatment 1-2x/week Duration of Treatment 12 weeks Plan of Care Start Date 09/28/19 Plan of Care End Date 12/21/19 Therapeutic Interventions Therapeutic Interventions Balance Training,Gait Training ,Home Exercise Program,Joint Mobilizations,Manual Therapy, Neuromuscular Re-education, Patient/Caregiver Education, Self-Care/Home Management,Soft Tissue Mobilization, Therapeutic Activities, Therapeutic Exercises Modalities Cold Pack/Ice Massage,Hot Packs Next Visit Focus/Plan Next Note Type Treatment Note Next Visit Plan assess response to HEP added STM for lumbar paraspinals and gluteals; initiated strength training for core, work toward bilateral hip strengthening next tx per PT POC.
--- NOTE | 2019-10-05 14:15 | PT.OTN ---
Addendum entered and electronically signed by Vanessa Wilks, PT 10/06/19 15:56: LLE longer in supine. Provided manual traction to the left leg in neutral rotation x 3 minutes with notable improvement in limb length discrepancy Original Note: Current Diagnoses Low back pain (10/05/19) Weakness (10/05/19) Physical Therapy Treatment Note PT-OP-A Visit Information Start: 09/28/19 10:36 Freq: Status: Active Protocol: Document 10/05/19 14:01 AW (Rec: 10/06/19 14:14 AW [id number]) Out-Patient Physical Therapy Visit Information Visit Information Visit Type Treatment Note Visit Start Time 09:45 Visit Stop Time 10:30 Total Visit Minutes 45 Visit Number 05/24 Number of ENGINEER INTERN Visits 0 PT-OP-B Current Condition Start: 09/28/19 10:36 Freq: Status: Active Protocol: Document 09/28/19 13:58 AW (Rec: 09/28/19 14:13 AW [email or web address]) Current Condition History of Current Condition Onset Date June 2019 Current Complaints low back pain, left hip pain History of Current Condition Hannah describes years of intermittent back pain which seems to be increasing in intensity and frequency. She states that she gets a sharp, grabbing pain which is often the beginning of being fairly incapacitated for 4-14 days. Just two days ago, she was reaching sideways toward her spouse who pulled her toward him for a hug and she felt the sharp, grabbing pain. Typically, this would have made it difficult for her to get in and out of bed, on and off the toilet for at least four days with limited capacity for up to two weeks. This recent event has had been less painful. The sharp pain is as bad as 9/10. She presents today with manageable 2/10 pain. Sitting is most problematic. If she sits too long, changing position is difficult and painful. Prior Treatments and Tests MRI 09/05/19: 1. Multilevel degenerative disc and facet disease, as well as ligamentum flavum hypertrophy and epidural lipomatosis. 2. Mild multilevel canal and foraminal stenoses. No neural impingement. Future Testing and Treatments Planned none identified Treatment Goals Patient/Caregiver Goals Pt hopes to be able to participate in dancing classes with increased confidence and less pain. She and her spouse purchased a travel trailer and hope to travel more but her sitting tolerance is limited. Prior Functional Status Baseline Function- ADL's Independent Baseline Function- Mobility Independent Baseline Function- Gait IND no device Baseline Function- Recreation/Hobbies Pt does regular stretches for her low back and hips. Pt could sit for several hours prior to injury. Current Functional Impairments (Reported) Functional Limitations- ADL's Difficulty with toilet transfers during painful episodes Functional Limitations- Mobility/Gait Difficulty with bed mobility during painful episodes. Functional Limitations- Recreation/ Pt unable to sit >30 minutes Hobbies due to increased pain. PT-OP-C Subjective Start: 09/28/19 10:36 Freq: Status: Active Protocol: Document 10/05/19 14:01 AW (Rec: 10/06/19 14:14 AW [id number]) OP-PT Subjective Patient Comments Patient Comments I'm having no back pain today but my knee is still bothering me a little. PT-OP-D Balance Start: 09/28/19 10:36 Freq: Status: Active Protocol: Document 09/28/19 16:07 AW (Rec: 09/28/19 16:37 AW [email or web address]) OP-PT Balance Assessment Sitting Balance Static Sitting Balance Ability Normal Dynamic Sitting Balance Ability Normal Standing Balance Static Standing Balance Ability Normal Dynamic Standing Balance Ability Normal Balance Tests Single Limb Standing Single Limb- Right 20 sec Single Limb- Left 20 sec Saldana Fall Scale Copyright Permission PT-OP-F Manual Assessment Start: 09/28/19 10:36 Freq: Status: Active Protocol: Document 09/28/19 16:07 AW (Rec: 09/28/19 16:37 AW [email or web address]) Manual Assessments Soft Tissue Assessment Soft Tissue Mobility Assessment Hypertonicity of bilateral paraspinals ~L2, L3. Tight gluteals left hip Joint Mobility Assessment Joint Mobility Assessment Hypomobility of lower lumbar segments on assessment of A/P glides PT-OP-H Neuro Start: 09/28/19 10:36 Freq: Status: Active Protocol: Document 09/28/19 16:07 AW (Rec: 09/28/19 16:37 AW [email or web address]) Sensation Evaluation Gross Sensation Gross Sensation WNL Deep Tendon Reflex & Clonus Assessment Deep Tendon Reflex Bilateral Achilles Deep Tendon Reflex 2+ Normal Bilateral Patellar Deep Tendon Reflex 2+ Normal PT-OP-K Range of Motion Start: 09/28/19 10:36 Freq: Status: Active Protocol: Document 09/28/19 16:07 AW (Rec: 09/28/19 16:37 AW [email or web address]) Lumbar Spine Range of Motion Lumbar Spine Active Degrees Testing Position Standing Flexion 65 Extension 10 Comments Lateral flexion with fingertips to 5 above knee joint line bilaterally. 80% of normal rotation in standing and seated. Hip Goniometric Range of Motion Hip Right Active Hip ROM WFL Yes Hip ROM Limitations Comments AROM and PROM WNL bilaterally with no imblance of external and internal rotation. PT-OP-L Special Tests Start: 09/28/19 10:36 Freq: Status: Active Protocol: Document 09/28/19 16:07 AW (Rec: 09/28/19 16:37 AW [email or web address]) Special Tests Lumbar Spine Special Tests Other- 1 Test Results distraction - relieving Homero Test Results negative for hip flexor involvement bilaterally Straight Leg Raise Test Results able to perform without pain provocation Compression Test Results slightly provocative Hip Special Tests Scour Test Test Results negative bilaterally PT-OP-M Strength Start: 09/28/19 10:36 Freq: Status: Active Protocol: Document 09/28/19 16:07 AW (Rec: 09/28/19 16:37 AW [email or web address]) Hip Strength Hip Manual Muscle Testing Left Flexion (L2) 4 Good Extension (S1) 4- Good- Abduction 4- Good- Adduction 4- Good- External Rotation 4+ Good+ Internal Rotation 4+ Good+ Comments R LE tested same as left Knee Strength Knee Manual Muscle Testing Left Flexion (S2) 4+ Good+ Extension (L3) 5 Normal PT-OP-Q Treatments Start: 09/28/19 10:36 Freq: Status: Active Protocol: Document 10/05/19 14:01 AW (Rec: 10/06/19 14:14 AW [id number]) Therapeutic Exercises Supine Exercises Tr ab trng, PPT, neutral pelvis Supine Exercise Name Tr Ab with marching knees, heel slides Equipment Used gait belt under L/S for tactile cue Reps/Minutes 12 min total Comments cued for gently belly button draw twd spine Prone Exercises quadruped with FF, leg lift Prone Exercise Name quadruped with FF, leg lift Reps/Minutes 8 each limb Comments cues for neutral L/S, abd draw in cat/camel Prone Exercise Name cat/camel quadruped Reps/Minutes 12 Comments cues for abd drawing in Standing Exercises resisted side step Standing Exercise Name resisted side step Side bilateral Resistance yellow Equipment Used TB Reps/Minutes 20 foot lap x 2 Comments added to HEP; cues for controlled step to hip hike Standing Exercise Name hip hike Side bilateral Equipment Used 6 step with rail for support Reps/Minutes 10 x 2 sets each side Comments cues to avoid pelvic rotation iso glute med at wall Standing Exercise Name iso glute med at wall Side bilateral Equipment Used purple ball Reps/Minutes 5 sec hold x 10 each side Comments added to HEP; cues for neutral pelvis PT-OP-T Assessment and Plan Start: 09/28/19 10:36 Freq: Status: Active Protocol: Document 10/05/19 14:01 AW (Rec: 10/06/19 14:14 AW [id number]) Physical Therapy Assessment Goals Four Impairment impaired daily function Short Term Goal (STG) Pt will score 30 or less on modified Oswestry to demonstrate improved daily function STG Duration 10/26/19 Epic Trainer Goal (LTG) Pt will score 20 or less on modified Oswestry to demonstrate improved daily function LTG Duration 12/21/19 Three Impairment Pt unable to tolerate sitting long periods Short Term Goal (STG) Pt will be able to sit 30 minutes without increase in pain >1 point on 10-point scale STG Duration 10/26/19 Epic Trainer Goal (LTG) Pt will be able to sit 60 minutes without increase in pain >1 point on 10-point scale LTG Duration 12/21/19 Two Impairment Pt unable to participate in hiking as she would like Short Term Goal (STG) Pt will hike 1/2 mile on uneven terrain without increase in pain >1 point on 10-point scale STG Duration 10/26/19 Epic Trainer Goal (LTG) Pt will hike 2 miles on uneven terrain without increase in pain >1 point on 10-point scale LTG Duration 12/21/19 One Impairment Pt has limited HEP Short Term Goal (STG) Pt will be independent with HEP for support of therapy services provided in clinic STG Duration 10/26/19 Epic Trainer Goal (LTG) Pt will be independent with maintenance HEP. LTG Duration 12/21/19 Assessment Summary Assessment Pt tolerated core strengthening and awareness exercises well. Remaining treatment time focused on education and ther ex for hip strengthening. Added two hip exercises to HEP. Physical Therapy Plan Frequency and Duration Frequency of Treatment 1-2x/week Duration of Treatment 12 weeks Plan of Care Start Date 09/28/19 Plan of Care End Date 12/21/19 Therapeutic Interventions Therapeutic Interventions Balance Training,Gait Training ,Home Exercise Program,Joint Mobilizations,Manual Therapy, Neuromuscular Re-education, Patient/Caregiver Education, Self-Care/Home Management,Soft Tissue Mobilization, Therapeutic Activities, Therapeutic Exercises Modalities Cold Pack/Ice Massage,Hot Packs Next Visit Focus/Plan Next Note Type Treatment Note Next Visit Plan assess response to HEP, continue with lower abd and hip strengthening and awareness during functional activities
--- NOTE | 2019-10-07 11:20 | PT.OTN ---
Current Diagnoses Low back pain (10/07/19) Weakness (10/07/19) Physical Therapy Treatment Note PT-OP-A Visit Information Start: 09/28/19 10:36 Freq: Status: Active Protocol: Document 10/07/19 10:40 SP (Rec: 10/07/19 11:31 SP [id number]) Out-Patient Physical Therapy Visit Information Visit Information Visit Type Treatment Note Visit Note ZIPPER TRIMMER HAND brought pt back late. Visit Start Time 10:40 Visit Stop Time 11:20 Total Visit Minutes 40 Visit Number 06/24 Number of ZIPPER TRIMMER HAND Visits 1 PT-OP-B Current Condition Start: 09/28/19 10:36 Freq: Status: Active Protocol: Document 09/28/19 13:58 AW (Rec: 09/28/19 14:13 AW [email or web address]) Current Condition History of Current Condition Onset Date June 2019 Current Complaints low back pain, left hip pain History of Current Condition Hannah describes years of intermittent back pain which seems to be increasing in intensity and frequency. She states that she gets a sharp, grabbing pain which is often the beginning of being fairly incapacitated for 4-14 days. Just two days ago, she was reaching sideways toward her spouse who pulled her toward him for a hug and she felt the sharp, grabbing pain. Typically, this would have made it difficult for her to get in and out of bed, on and off the toilet for at least four days with limited capacity for up to two weeks. This recent event has had been less painful. The sharp pain is as bad as 9/10. She presents today with manageable 2/10 pain. Sitting is most problematic. If she sits too long, changing position is difficult and painful. Prior Treatments and Tests MRI 09/05/19: 1. Multilevel degenerative disc and facet disease, as well as ligamentum flavum hypertrophy and epidural lipomatosis. 2. Mild multilevel canal and foraminal stenoses. No neural impingement. Future Testing and Treatments Planned none identified Treatment Goals Patient/Caregiver Goals Pt hopes to be able to participate in dancing classes with increased confidence and less pain. She and her spouse purchased a travel trailer and hope to travel more but her sitting tolerance is limited. Prior Functional Status Baseline Function- ADL's Independent Baseline Function- Mobility Independent Baseline Function- Gait IND no device Baseline Function- Recreation/Hobbies Pt does regular stretches for her low back and hips. Pt could sit for several hours prior to injury. Current Functional Impairments (Reported) Functional Limitations- ADL's Difficulty with toilet transfers during painful episodes Functional Limitations- Mobility/Gait Difficulty with bed mobility during painful episodes. Functional Limitations- Recreation/ Pt unable to sit >30 minutes Hobbies due to increased pain. PT-OP-C Subjective Start: 09/28/19 10:36 Freq: Status: Active Protocol: Document 10/07/19 10:40 SP (Rec: 10/07/19 11:31 SP [id number]) OP-PT Subjective Patient Comments Patient Comments Pt stated is more aware of core muscles with the exercises and can bend over to tie shoes with decreased LB pull/discomfort. Pt stated doesn't have more appts scheduled, going out of town for 2 weeks and will make more appts when get back. Caustious making many more appts, has older and trying to limit exposer to public but feels making progress. PT-OP-D Balance Start: 09/28/19 10:36 Freq: Status: Active Protocol: Document 09/28/19 16:07 AW (Rec: 09/28/19 16:37 AW [email or web address]) OP-PT Balance Assessment Sitting Balance Static Sitting Balance Ability Normal Dynamic Sitting Balance Ability Normal Standing Balance Static Standing Balance Ability Normal Dynamic Standing Balance Ability Normal Balance Tests Single Limb Standing Single Limb- Right 20 sec Single Limb- Left 20 sec Saldana Fall Scale Copyright Permission PT-OP-F Manual Assessment Start: 09/28/19 10:36 Freq: Status: Active Protocol: Document 09/28/19 16:07 AW (Rec: 09/28/19 16:37 AW [email or web address]) Manual Assessments Soft Tissue Assessment Soft Tissue Mobility Assessment Hypertonicity of bilateral paraspinals ~L2, L3. Tight gluteals left hip Joint Mobility Assessment Joint Mobility Assessment Hypomobility of lower lumbar segments on assessment of A/P glides PT-OP-H Neuro Start: 09/28/19 10:36 Freq: Status: Active Protocol: Document 09/28/19 16:07 AW (Rec: 09/28/19 16:37 AW [email or web address]) Sensation Evaluation Gross Sensation Gross Sensation WNL Deep Tendon Reflex & Clonus Assessment Deep Tendon Reflex Bilateral Achilles Deep Tendon Reflex 2+ Normal Bilateral Patellar Deep Tendon Reflex 2+ Normal PT-OP-K Range of Motion Start: 09/28/19 10:36 Freq: Status: Active Protocol: Document 09/28/19 16:07 AW (Rec: 09/28/19 16:37 AW [email or web address]) Lumbar Spine Range of Motion Lumbar Spine Active Degrees Testing Position Standing Flexion 65 Extension 10 Comments Lateral flexion with fingertips to 5 above knee joint line bilaterally. 80% of normal rotation in standing and seated. Hip Goniometric Range of Motion Hip Right Active Hip ROM WFL Yes Hip ROM Limitations Comments AROM and PROM WNL bilaterally with no imblance of external and internal rotation. PT-OP-L Special Tests Start: 09/28/19 10:36 Freq: Status: Active Protocol: Document 09/28/19 16:07 AW (Rec: 09/28/19 16:37 AW [email or web address]) Special Tests Lumbar Spine Special Tests Other- 1 Test Results distraction - relieving Homero Test Results negative for hip flexor involvement bilaterally Straight Leg Raise Test Results able to perform without pain provocation Compression Test Results slightly provocative Hip Special Tests Scour Test Test Results negative bilaterally PT-OP-M Strength Start: 09/28/19 10:36 Freq: Status: Active Protocol: Document 09/28/19 16:07 AW (Rec: 09/28/19 16:37 AW [email or web address]) Hip Strength Hip Manual Muscle Testing Left Flexion (L2) 4 Good Extension (S1) 4- Good- Abduction 4- Good- Adduction 4- Good- External Rotation 4+ Good+ Internal Rotation 4+ Good+ Comments R LE tested same as left Knee Strength Knee Manual Muscle Testing Left Flexion (S2) 4+ Good+ Extension (L3) 5 Normal PT-OP-Q Treatments Start: 09/28/19 10:36 Freq: Status: Active Protocol: Document 10/07/19 10:40 SP (Rec: 10/07/19 11:31 SP [id number]) Therapeutic Exercises Supine Exercises Glut stretch/Fig 4 Supine Exercise Name hip ER/ IR supine and seated Side bilateral Reps/Minutes 30 Sec x2 Comments discussed and performed supine and sitting positions SKTC Supine Exercise Name stretch Reps/Minutes 30 sec hold x2 BLE Tr ab trng, PPT, neutral pelvis Supine Exercise Name Tr Ab with marching knees, heel slides Equipment Used gait belt under L/S for tactile cue Reps/Minutes 12 min total Comments cued for gently belly button draw twd spine Standing Exercises core shld ext, rows band Standing Exercise Name shld ext only, add rows next appt Resistance Lv 1 Reps/Minutes x10 Comments cued PPT, core facilitation with soft knee alternating BUE w/ other tension resisted side step Standing Exercise Name resisted side step Side bilateral Resistance yellow Equipment Used TB Reps/Minutes 20 foot lap x 2 Comments Review HEP; cues for controlled step to hip hike Standing Exercise Name hip hike Side bilateral Equipment Used 2 step with rail for support Reps/Minutes 10 x 2 sets each side Comments cues to avoid pelvic rotation iso glute med at wall Standing Exercise Name iso glute med at wall ( ER) Side bilateral Equipment Used purple ball Reps/Minutes 5 sec hold x 10 each side Comments added to HEP; cues for neutral pelvis PT-OP-T Assessment and Plan Start: 09/28/19 10:36 Freq: Status: Active Protocol: Document 10/07/19 10:40 SP (Rec: 10/07/19 11:31 SP [id number]) Physical Therapy Assessment Goals Four Impairment impaired daily function Short Term Goal (STG) Pt will score 30 or less on modified Oswestry to demonstrate improved daily function STG Duration 10/26/19 Senior Living Goal (LTG) Pt will score 20 or less on modified Oswestry to demonstrate improved daily function LTG Duration 12/21/19 Three Impairment Pt unable to tolerate sitting long periods Short Term Goal (STG) Pt will be able to sit 30 minutes without increase in pain >1 point on 10-point scale STG Duration 10/26/19 Stained Glass Window Designer Goal (LTG) Pt will be able to sit 60 minutes without increase in pain >1 point on 10-point scale LTG Duration 12/21/19 Two Impairment Pt unable to participate in hiking as she would like Short Term Goal (STG) Pt will hike 1/2 mile on uneven terrain without increase in pain >1 point on 10-point scale STG Duration 10/26/19 Stained Glass Window Designer Goal (LTG) Pt will hike 2 miles on uneven terrain without increase in pain >1 point on 10-point scale LTG Duration 12/21/19 One Impairment Pt has limited HEP Short Term Goal (STG) Pt will be independent with HEP for support of therapy services provided in clinic STG Duration 10/26/19 Senior Living Goal (LTG) Pt will be independent with maintenance HEP. LTG Duration 12/21/19 Assessment Summary Assessment Pt improved core and hip stabilization able to incorporated increased challenge dynamic exercises. Reviewed HEP and added standing hip elevation off 2 step, 6 today challenged in grading eccentric improved with 2, will use 2 hard bound book at home with contact chair and ab isometric with UE pull down using L1 band with good form alternating able to feel core working more. Pt will make 1 more appt then see how doing after that if needing more appts, 1xwk prefers. Physical Therapy Plan Frequency and Duration Frequency of Treatment 1-2x/week Duration of Treatment 12 weeks Plan of Care Start Date 09/28/19 Plan of Care End Date 12/21/19 Therapeutic Interventions Therapeutic Interventions Balance Training,Gait Training ,Home Exercise Program,Joint Mobilizations,Manual Therapy, Neuromuscular Re-education, Patient/Caregiver Education, Self-Care/Home Management,Soft Tissue Mobilization, Therapeutic Activities, Therapeutic Exercises Modalities Cold Pack/Ice Massage,Hot Packs Next Visit Focus/Plan Next Note Type Treatment Note Next Visit Plan assess response to HEP, continue with lower abd and hip strengthening and awareness during functional activities
--- NOTE | 2019-11-09 12:02 | PT.OTN ---
Current Diagnoses Low back pain (11/09/19) Weakness (11/09/19) Physical Therapy Treatment Note PT-OP-A Visit Information Start: 09/28/19 10:36 Freq: Status: Active Protocol: Document 11/09/19 11:48 AW (Rec: 11/09/19 12:02 AW [email or web address]) Out-Patient Physical Therapy Visit Information Visit Information Visit Type Discharge Summary Visit Start Time 09:50 Visit Stop Time 10:30 Total Visit Minutes 40 Visit Number 07/24 Number of PLASTIC DOLLS MOLD FILLER Visits 0 Evaluation Information Evaluation Date 09/28/19 PT-OP-B Current Condition Start: 09/28/19 10:36 Freq: Status: Active Protocol: Document 09/28/19 13:58 AW (Rec: 09/28/19 14:13 AW [email or web address]) Current Condition History of Current Condition Onset Date June 2019 Current Complaints low back pain, left hip pain History of Current Condition Hannah describes years of intermittent back pain which seems to be increasing in intensity and frequency. She states that she gets a sharp, grabbing pain which is often the beginning of being fairly incapacitated for 4-14 days. Just two days ago, she was reaching sideways toward her spouse who pulled her toward him for a hug and she felt the sharp, grabbing pain. Typically, this would have made it difficult for her to get in and out of bed, on and off the toilet for at least four days with limited capacity for up to two weeks. This recent event has had been less painful. The sharp pain is as bad as 9/10. She presents today with manageable 2/10 pain. Sitting is most problematic. If she sits too long, changing position is difficult and painful. Prior Treatments and Tests MRI 09/05/19: 1. Multilevel degenerative disc and facet disease, as well as ligamentum flavum hypertrophy and epidural lipomatosis. 2. Mild multilevel canal and foraminal stenoses. No neural impingement. Future Testing and Treatments Planned none identified Treatment Goals Patient/Caregiver Goals Pt hopes to be able to participate in dancing classes with increased confidence and less pain. She and her spouse purchased a travel trailer and hope to travel more but her sitting tolerance is limited. Prior Functional Status Baseline Function- ADL's Independent Baseline Function- Mobility Independent Baseline Function- Gait IND no device Baseline Function- Recreation/Hobbies Pt does regular stretches for her low back and hips. Pt could sit for several hours prior to injury. Current Functional Impairments (Reported) Functional Limitations- ADL's Difficulty with toilet transfers during painful episodes Functional Limitations- Mobility/Gait Difficulty with bed mobility during painful episodes. Functional Limitations- Recreation/ Pt unable to sit >30 minutes Hobbies due to increased pain. PT-OP-C Subjective Start: 09/28/19 10:36 Freq: Status: Active Protocol: Document 11/09/19 11:48 AW (Rec: 11/09/19 12:02 AW [email or web address]) OP-PT Subjective Patient Comments Patient Comments I've been free of back pain and my exercises are easy to understand and do at home. I'm ready to discharge. Patient Reported Progress Improving PT-OP-D Balance Start: 09/28/19 10:36 Freq: Status: Active Protocol: Document 09/28/19 16:07 AW (Rec: 09/28/19 16:37 AW [email or web address]) OP-PT Balance Assessment Sitting Balance Static Sitting Balance Ability Normal Dynamic Sitting Balance Ability Normal Standing Balance Static Standing Balance Ability Normal Dynamic Standing Balance Ability Normal Balance Tests Single Limb Standing Single Limb- Right 20 sec Single Limb- Left 20 sec Saldana Fall Scale Copyright Permission PT-OP-F Manual Assessment Start: 09/28/19 10:36 Freq: Status: Active Protocol: Document 09/28/19 16:07 AW (Rec: 09/28/19 16:37 AW [email or web address]) Manual Assessments Soft Tissue Assessment Soft Tissue Mobility Assessment Hypertonicity of bilateral paraspinals ~L2, L3. Tight gluteals left hip Joint Mobility Assessment Joint Mobility Assessment Hypomobility of lower lumbar segments on assessment of A/P glides PT-OP-H Neuro Start: 09/28/19 10:36 Freq: Status: Active Protocol: Document 09/28/19 16:07 AW (Rec: 09/28/19 16:37 AW [email or web address]) Sensation Evaluation Gross Sensation Gross Sensation WNL Deep Tendon Reflex & Clonus Assessment Deep Tendon Reflex Bilateral Achilles Deep Tendon Reflex 2+ Normal Bilateral Patellar Deep Tendon Reflex 2+ Normal PT-OP-K Range of Motion Start: 09/28/19 10:36 Freq: Status: Active Protocol: Document 09/28/19 16:07 AW (Rec: 09/28/19 16:37 AW [email or web address]) Lumbar Spine Range of Motion Lumbar Spine Active Degrees Testing Position Standing Flexion 65 Extension 10 Comments Lateral flexion with fingertips to 5 above knee joint line bilaterally. 80% of normal rotation in standing and seated. Hip Goniometric Range of Motion Hip Right Active Hip ROM WFL Yes Hip ROM Limitations Comments AROM and PROM WNL bilaterally with no imblance of external and internal rotation. PT-OP-L Special Tests Start: 09/28/19 10:36 Freq: Status: Active Protocol: Document 09/28/19 16:07 AW (Rec: 09/28/19 16:37 AW [email or web address]) Special Tests Lumbar Spine Special Tests Other- 1 Test Results distraction - relieving Homero Test Results negative for hip flexor involvement bilaterally Straight Leg Raise Test Results able to perform without pain provocation Compression Test Results slightly provocative Hip Special Tests Scour Test Test Results negative bilaterally PT-OP-M Strength Start: 09/28/19 10:36 Freq: Status: Active Protocol: Document 09/28/19 16:07 AW (Rec: 09/28/19 16:37 AW [email or web address]) Hip Strength Hip Manual Muscle Testing Left Flexion (L2) 4 Good Extension (S1) 4- Good- Abduction 4- Good- Adduction 4- Good- External Rotation 4+ Good+ Internal Rotation 4+ Good+ Comments R LE tested same as left Knee Strength Knee Manual Muscle Testing Left Flexion (S2) 4+ Good+ Extension (L3) 5 Normal PT-OP-Q Treatments Start: 09/28/19 10:36 Freq: Status: Active Protocol: Document 11/09/19 11:48 AW (Rec: 11/09/19 12:02 AW [email or web address]) Gym Equipment Sport Cord 1 Exercise Details fwd/bwd/lateral Cord/Resistance green Comments 2 laps each direction with cues for core engagement Therapeutic Exercises Sitting Exercises pelvic tilt Sitting Exercise Name pelvic tilt Equipment Used 65 cm ball Reps/Minutes 8 reps fwd/bwd and side to side Comments cues for postural awareness Standing Exercises box lift from chair ht Standing Exercise Name box lift from chair ht Resistance 8# Equipment Used db, crate Reps/Minutes 10 reps Comments focus on hip hinge and glute engagement squat tap Standing Exercise Name squat tap Equipment Used standard height chair Reps/Minutes 5 reps x 3 Comments cues for hip hinge wood chop Standing Exercise Name wood chop Side bilateral Resistance level 1 Equipment Used TB Reps/Minutes 10 bilat Comments cues for core engagement palloff press Standing Exercise Name palloff press Side bilateral Resistance level 1 Equipment Used TB Reps/Minutes 10 bilat Comments cues for scap retraction, core engagement core shld ext, rows band Standing Exercise Name shld ext only, add rows next appt Resistance Lv 1 Reps/Minutes x10 Comments cued PPT, core facilitation with soft knee alternating BUE w/ other tension PT-OP-T Assessment and Plan Start: 09/28/19 10:36 Freq: Status: Active Protocol: Document 11/09/19 11:48 AW (Rec: 11/09/19 12:02 AW [email or web address]) Physical Therapy Assessment Goals Four Impairment impaired daily function Short Term Goal (STG) Pt will score 30 or less on modified Oswestry to demonstrate improved daily function STG Duration 10/26/19 Pc Installation Engineer Goal (LTG) Pt will score 20 or less on modified Oswestry to demonstrate improved daily function NOT ASSESSED LTG Duration 12/21/19 Three Impairment Pt unable to tolerate sitting long periods Short Term Goal (STG) Pt will be able to sit 30 minutes without increase in pain >1 point on 10-point scale STG Duration 10/26/19 Pc Installation Engineer Goal (LTG) Pt will be able to sit 60 minutes without increase in pain >1 point on 10-point scale MET 11/09/19 LTG Duration 12/21/19 Two Impairment Pt unable to participate in hiking as she would like Short Term Goal (STG) Pt will hike 1/2 mile on uneven terrain without increase in pain >1 point on 10-point scale STG Duration 10/26/19 Pc Installation Engineer Goal (LTG) Pt will hike 2 miles on uneven terrain without increase in pain >1 point on 10-point scale MET 11/09/19 LTG Duration 12/21/19 One Impairment Pt has limited HEP Short Term Goal (STG) Pt will be independent with HEP for support of therapy services provided in clinic STG Duration 10/26/19 Mcc Goal (LTG) Pt will be independent with maintenance HEP. MET 11/09/19 LTG Duration 12/21/19 Assessment Summary Assessment Pt is independent with HEP which was reviewed today. Improved postural awareness is evident and pt feels confident she has the tools to prevent and manage back pain. She has met her most important and functional goals and is ready for discharge. Physical Therapy Plan Frequency and Duration Frequency of Treatment 1-2x/week Duration of Treatment 12 weeks Plan of Care Start Date 09/28/19 Plan of Care End Date 12/21/19 Therapeutic Interventions Therapeutic Interventions Balance Training,Gait Training ,Home Exercise Program,Joint Mobilizations,Manual Therapy, Neuromuscular Re-education, Patient/Caregiver Education, Self-Care/Home Management,Soft Tissue Mobilization, Therapeutic Activities, Therapeutic Exercises Modalities Cold Pack/Ice Massage,Hot Packs Discharge Physical Therapy Discharge Reasons Goals Met Discharge Comments Pt is independent with HEP which was reviewed today. Improved postural awareness is evident and pt feels confident she has the tools to prevent and manage back pain. She has met her most important and functional goals and is ready for discharge.
== END 2019-11-10 08:31 ==
LOC: PHYS 09:45
PROVIDERS: PCP Family Medicine; Referring Provider Family Medicine; Visit Provider Family Medicine
DX: M54.5 Low back pain (principal); R53.1 Weakness
CPT/HCPCS: 97110; 97161

== ENCOUNTER → 2020-01-20 11:57 | Outpatient (CLI) | payer OTHER, SELFPAY ==
--- NOTE | 2020-01-20 | DI.MG.S_ITS ---
BILATERAL DIGITAL SCREENING MAMMOGRAM 3D/2D WITH CAD: 01/20/2020 CLINICAL: Routine screening. Family history of breast cancer. Comparison is made to exams dated: 12/13/2018 mammogram, 11/04/2017 mammogram, 10/30/2016 mammogram, and 12/18/2014 mammogram - [facility]. The tissue of both breasts is heterogeneously dense. This may lower the sensitivity of mammography. Current study was also evaluated with a Computer Aided Detection (CAD) system. No significant masses, calcifications, or other findings are seen in either breast. There has been no significant interval change. IMPRESSION: NEGATIVE There is no mammographic evidence of malignancy. A 1 year screening mammogram is recommended. This exam was interpreted at Station ID: [id number]. NOTE: For mammograms, a report in lay terms will be sent to the patient. Approximately 15% of breast malignancies will not be visualized mammographically. In the management of a palpable breast mass, a negative mammogram must not discourage biopsy of a clinically suspicious lesion. Electronically Signed By: Gretel monk/mora:01/20/2020 13:06:19 letter sent: Normal Exam ACR BI-RADS Category 1: Negative [id number]
== END ==
PROVIDERS: PCP Family Medicine; Referring Provider Family Medicine; Visit Provider Family Medicine
DX: Z12.31 Encounter for screening mammogram for malignant neoplasm of breast (principal)
CPT/HCPCS: 77063; 77067

== ENCOUNTER → 2020-04-24 14:22 | Outpatient (CLI) | payer OTHER, SELFPAY ==
--- NOTE | 2020-04-24 14:23 | DI.RAD.S_ITS ---
PROCEDURE: XR CHEST 2V INDICATIONS: sob TECHNIQUE: 2 views of the chest were acquired. COMPARISON: None. FINDINGS: Surgical changes and devices: None. Lungs and pleura: Lungs are clear. No pleural effusions or pneumothorax. Mediastinum: Mediastinal contours are normal. Heart size is normal. Bones and chest wall: No suspicious bony abnormalities. Soft tissues appear unremarkable. IMPRESSION: No acute cardiopulmonary disease. Dictated by: Clotilde Crenshaw M.D. on 04/24/2020 at 16:24 Approved by: Clotilde Crenshaw M.D. on 04/24/2020 at 16:25
[2020-04-24 14:59] LABS: Add Manual Diff / Slide Review NO; Basophils Absolute Auto 0 /uL (0-100); Basophils Percent Auto 0.7 % (0-2); Eosinophils Absolute Auto 100 /uL (0-450); Eosinophils Percent Auto 0.9 % (2-4); Hematocrit 40.2 % (36-46); Hemoglobin 13.7 g/dL (12.0-16.0); Lymphocytes Absolute Auto 2400 /uL (1100-4500); Lymphocytes Percent Auto 40.4 % (25-40); Mean Corpuscular Hemoglobin 30.5 PG (26-34); Mean Corpuscular Volume 89.8 fL (80-100); Monocytes Absolute Auto 300 /uL (0-900); Monocytes Percent Auto 5.3 % (3-14); Neutrophils Absolute Auto 3100 /uL (1500-7000); Neutrophils Percent Auto 52.7 % (50-75); Platelet Count 166 X10^3/uL (150-400); Red Blood Cell Count 4.48 X10^6/uL (4.0-5.2); Red Cell Distribution Width 13.3 % (11.6-14.8); White Blood Cell Count 5.9 X10^3/uL (4.5-11.0)
[2020-04-24 15:16] LABS: Alanine Aminotransferase 17 IU/L (<35); Albumin 4.6 g/dL (3.5-5.0); Albumin Globulin Ratio 1.4 (1.0-2.8); Alkaline Phosphatase 73 U/L (38-126); Aspartate Aminotransferase 26 IU/L (14-36); BUN Creatinine Ratio 22.4 (6-22); Bilirubin Total 0.3 mg/dL (0.2-1.3); Blood Urea Nitrogen 17 mg/dL (7-17); Calcium 9.7 mg/dL (8.4-10.2); Carbon Dioxide 35 mmol/L (22-32); Chloride 100 mmol/L (98-107); Estimated Glomerular Filt Rate > 60.0 mL/min (>60); Globulin 3.4 g/dL (1.7-4.1); Glucose 106 mg/dL (80-110); HEMOLYSIS < 15 (0-50); Potassium 3.9 mmol/L (3.4-5.1); Sodium 139 mmol/L (137-145)
== END ==
PROVIDERS: PCP Family Medicine; Referring Provider Registered Nurse; Visit Provider Registered Nurse
DX: R06.02 Shortness of breath (principal); R53.83 Other fatigue
CPT/HCPCS: 36415; 71046; 80053; 85025

== ENCOUNTER → 2020-05-31 13:38 | Outpatient (CLI) | payer OTHER, SELFPAY ==
[2020-05-31] MEDS: COVID-19 VACC #1, MRNA(MOD) 100 MCG/0.5 ML VIAL IM (13:45)
== END ==
PROVIDERS: PCP Family Medicine; Visit Provider Internal Medicine
DX: Z23 Encounter for immunization (principal)
CPT/HCPCS: 0011A; 91301

== ENCOUNTER → 2020-06-28 13:13 | Outpatient (CLI) | payer OTHER, SELFPAY ==
[2020-06-28] MEDS: COVID-19 VACC #2, MRNA(MOD) 100 MCG/0.5 ML VIAL IM (13:17)
== END ==
PROVIDERS: PCP Family Medicine; Visit Provider Internal Medicine
DX: Z23 Encounter for immunization (principal)
CPT/HCPCS: 0012A; 91301

== ENCOUNTER → 2020-09-11 12:57 | Outpatient (CLI) | payer OTHER, SELFPAY ==
[2020-09-12 16:44] LABS: Fecal Immunochemical Test Negative (Negative)
== END ==
PROVIDERS: PCP Family Medicine; Referring Provider Family Medicine; Visit Provider Family Medicine
DX: Z12.11 Encounter for screening for malignant neoplasm of colon (principal)
CPT/HCPCS: 82274

== ENCOUNTER → 2020-11-16 10:07 | Outpatient (CLI) | payer OTHER, SELFPAY ==
--- NOTE | 2020-11-16 10:09 | DI.RAD.S_ITS ---
PROCEDURE: XR DEXA AXIAL SKELETON INDICATIONS: Risk of increased osteoporosis. COMPARISON: None. FINDINGS: This blank DEXA report has been sent in error by the PACS system. The correct and complete report will be forthcoming in 1-2 days. Thank you for your patience and understanding. Dictated by: Bowen Cabrera M.D. on 11/16/2020 at 10:58 Approved by: Bowen Cabrera M.D. on 11/16/2020 at 10:58
== END ==
PROVIDERS: PCP Family Medicine; Referring Provider Family Medicine; Visit Provider Family Medicine
DX: M81.0 Age-related osteoporosis without current pathological fracture (principal); Z78.0 Asymptomatic menopausal state; M85.852 Other specified disorders of bone density and structure, left thigh; M85.851 Other specified disorders of bone density and structure, right thigh
CPT/HCPCS: 77080

== ENCOUNTER → 2020-11-19 11:11 | Outpatient (CLI) | payer OTHER, SELFPAY ==
--- NOTE | 2020-11-19 11:12 | DI.RAD.S_ITS ---
PROCEDURE: XR KNEE RT 3V INDICATIONS: right knee pain TECHNIQUE: 3 views of the knee were acquired. COMPARISON: [facility], , XR KNEE RT 3V, 10/31/2017, 9:46. FINDINGS: Bones: No fractures or dislocations. No suspicious bony lesions. Mild medial compartment arthritic change. Soft tissues: Minimal joint effusion. No suspicious soft tissue calcifications. IMPRESSION: Minimal effusion. No visualized acute fracture or dislocation. However, if clinical concern and/or pain persist, short interval imaging followup in 7-10 days is recommended, as occult injury cannot be definitively excluded. Dictated by: Selma Grant M.D. on 11/19/2020 at 15:40 Approved by: Selma Grant M.D. on 11/19/2020 at 15:41
== END ==
PROVIDERS: PCP Family Medicine; Referring Provider Family Medicine; Visit Provider Family Medicine
DX: M25.561 Pain in right knee (principal); M25.461 Effusion, right knee
CPT/HCPCS: 73562

== ENCOUNTER → 2020-11-29 11:13 | Outpatient (CLI) | payer OTHER, SELFPAY ==
--- NOTE | 2020-11-29 11:15 | DI.RAD.S_ITS ---
PROCEDURE: XR FOOT RT MIN 3V INDICATIONS: fall TECHNIQUE: 3 views of the foot were acquired. COMPARISON: [facility], CR, XR FOOT LT MIN 3V, 04/06/2018, 9:21. FINDINGS: Bones: No fractures or dislocations. No suspicious bony lesions. Soft tissues: No tibiotalar joint effusion. Achilles tendon appears normal. IMPRESSION: Unremarkable right foot radiographs Approved by: Ngero Burns M.D. on 11/29/2020 at 11:26
== END ==
PROVIDERS: PCP Family Medicine; Referring Provider Nurse Practitioner Family; Visit Provider Nurse Practitioner Family
DX: M79.671 Pain in right foot (principal)
CPT/HCPCS: 73630

== ENCOUNTER → 2021-05-30 10:46 | Outpatient (CLI) | payer OTHER, SELFPAY ==
--- NOTE | 2021-05-30 | DI.MG.S_ITS ---
BILATERAL DIGITAL SCREENING MAMMOGRAM 3D/2D WITH CAD: 05/30/2021 CLINICAL: Routine screening. Family history of breast cancer. Comparison is made to exams dated: 01/20/2020 mammogram, 12/13/2018 mammogram, and 11/04/2017 mammogram - [facility]. The tissue of both breasts is heterogeneously dense. This may lower the sensitivity of mammography. Current study was also evaluated with a Computer Aided Detection (CAD) system. No significant masses, calcifications, or other findings are seen in either breast. There has been no significant interval change. IMPRESSION: NEGATIVE There is no mammographic evidence of malignancy. A 1 year screening mammogram is recommended. This exam was interpreted at Station ID: [id number]. NOTE: For mammograms, a report in lay terms will be sent to the patient. Approximately 15% of breast malignancies will not be visualized mammographically. In the management of a palpable breast mass, a negative mammogram must not discourage biopsy of a clinically suspicious lesion. Electronically Signed By: Bowen scott/mora:05/30/2021 13:07:19 letter sent: Normal Exam ACR BI-RADS Category 1: Negative 3341F
== END ==
PROVIDERS: PCP Family Medicine; Referring Provider Family Medicine; Visit Provider Family Medicine
DX: Z12.31 Encounter for screening mammogram for malignant neoplasm of breast (principal); Z80.3 Family history of malignant neoplasm of breast
CPT/HCPCS: 77063; 77067

== ENCOUNTER → 2021-08-01 07:27 | Outpatient (CLI) | payer OTHER, SELFPAY ==
[2021-08-01 08:46] LABS: Add Manual Diff / Slide Review NO; Basophils Absolute Auto 0 /uL (0-100); Basophils Percent Auto 0.7 % (0-2); Eosinophils Absolute Auto 100 /uL (0-450); Eosinophils Percent Auto 1.9 % (2-4); Hematocrit 40.4 % (36-46); Hemoglobin 13.9 g/dL (12.0-16.0); Lymphocytes Absolute Auto 2100 /uL (1100-4500); Lymphocytes Percent Auto 48.8 % (25-40); Mean Corpuscular HGB Conc 34.4 % (30-36); Mean Corpuscular Hemoglobin 30.5 PG (26-34); Mean Corpuscular Volume 88.7 fL (80-100); Monocytes Absolute Auto 300 /uL (0-900); Monocytes Percent Auto 5.7 % (3-14); Neutrophils Absolute Auto 1900 /uL (1500-7000); Neutrophils Percent Auto 42.9 % (50-75); Platelet Count 166 X10^3/uL (150-400); Red Blood Cell Count 4.55 X10^6/uL (4.0-5.2); Red Cell Distribution Width 12.9 % (11.6-14.8); White Blood Cell Count 4.4 X10^3/uL (4.5-11.0)
[2021-08-01 09:13] LABS: Alanine Aminotransferase 28 IU/L (<35); Albumin 4.6 g/dL (3.5-5.0); Albumin Globulin Ratio 1.6 (1.0-2.8); Alkaline Phosphatase 69 U/L (38-126); Aspartate Aminotransferase 33 IU/L (14-36); BUN Creatinine Ratio 19.7 (6-22); Bilirubin Total 0.5 mg/dL (0.2-1.3); Blood Urea Nitrogen 15 mg/dL (7-17); Calcium 9.1 mg/dL (8.4-10.2); Carbon Dioxide 31 mmol/L (22-32); Chloride 101 mmol/L (98-107); Cholesterol 225 mg/dL (140-199); Estimated Glomerular Filt Rate > 60 mL/min (>60); Globulin 2.9 g/dL (1.7-4.1); Glucose 88 mg/dL (80-110); HDL Cholesterol 105 mg/dL (40-60); HEMOLYSIS < 15 (0-50); LDL Cholesterol Calculated 100 mg/dL (<100); Potassium 4.2 mmol/L (3.4-5.1); Sodium 140 mmol/L (137-145); Total Protein 7.5 g/dL (6.3-8.2); Triglycerides 101 mg/dL (35-150)
== END ==
PROVIDERS: PCP Family Medicine; Referring Provider Family Medicine; Visit Provider Family Medicine
DX: G47.9 Sleep disorder, unspecified (principal); M81.0 Age-related osteoporosis without current pathological fracture; R03.0 Elevated blood-pressure reading, without diagnosis of hypertension
CPT/HCPCS: 36415; 80053; 80061; 85025

== ENCOUNTER → 2021-08-09 14:24 | Outpatient (CLI) | payer OTHER, SELFPAY | PROVIDERS: PCP Family Medicine; Referring Provider Family Medicine; Visit Provider Family Medicine | DX: M81.0 Age-related osteoporosis without current pathological fracture (principal); G47.9 Sleep disorder, unspecified; R03.0 Elevated blood-pressure reading, without diagnosis of hypertension | CPT/HCPCS: 77080 ==

== ENCOUNTER → 2022-04-25 09:38 | Outpatient (CLI) | payer OTHER, SELFPAY ==
[2022-04-26 13:45] LABS: Candida species Negative (Negative); Gardnerella vaginalis Negative (Negative); Trichomoas vaginalis Negative (Negative)
== END ==
PROVIDERS: PCP Family Medicine; Visit Provider Obstetrics & Gynecology
DX: N89.8 Other specified noninflammatory disorders of vagina (principal)
CPT/HCPCS: 87480; 87510; 87660

== ENCOUNTER → 2022-06-10 13:23 | Outpatient (CLI) | payer OTHER, SELFPAY ==
--- NOTE | 2022-06-10 | DI.MG.S_ITS ---
BILATERAL DIGITAL SCREENING MAMMOGRAM 3D/2D WITH CAD: 06/10/2022 CLINICAL: Routine screening. Family history of breast cancer. Comparison is made to exams dated: 05/30/2021 mammogram, 01/20/2020 mammogram, and 12/13/2018 mammogram - [facility]. There are scattered areas of fibroglandular density in both breasts (category b / 25%-50% glandular tissue). Current study was also evaluated with a Computer Aided Detection (CAD) system. There is a possible developing equal density asymmetry with an obscured and circumscribed margin in the right breast middle depth lateral region seen on the craniocaudal view only. No other significant masses, calcifications, or other findings are seen in either breast. IMPRESSION: INCOMPLETE: NEEDS ADDITIONAL IMAGING EVALUATION The possible developing equal density asymmetry in the right breast is indeterminate. Additional views with possible ultrasound are recommended. Based on the Tyrer Cuzick model (a risk assessment model) the patient's lifetime risk is 7.1% and her 10 year risk is 3.7%. According to the ACR, ACS, and NCCN guidelines, an annual breast MRI exam along with mammogram is recommended if the patient's lifetime risk is 20% or greater. This exam was interpreted at Station ID: [id number]. NOTE: For mammograms, a report in lay terms will be sent to the patient. Approximately 15% of breast malignancies will not be visualized mammographically. In the management of a palpable breast mass, a negative mammogram must not discourage biopsy of a clinically suspicious lesion. Electronically Signed By: Gretel monk/mora:06/10/2022 15:38:16 letter sent: Additional Imaging Needed ACR BI-RADS Category 0: Incomplete 3340F
== END ==
PROVIDERS: PCP Family Medicine; Referring Provider Family Medicine; Visit Provider Family Medicine
DX: Z12.31 Encounter for screening mammogram for malignant neoplasm of breast (principal); Z80.3 Family history of malignant neoplasm of breast
CPT/HCPCS: 77063; 77067

== ENCOUNTER → 2022-06-17 16:02 | Outpatient (CLI) | payer OTHER, SELFPAY ==
[2022-06-17 17:19] LABS: Influenza A - CEPHEID Flu A NEGATIVE (NEGATIVE); Influenza B - CEPHEID Flu B NEGATIVE (NEGATIVE); Respiratory Syncytial Virus Negative (Negative)
[2022-06-17 17:26] LABS: COVID-19 CEPHEID 4-PLEX PCR Negative (Negative)
== END ==
PROVIDERS: PCP Family Medicine; Visit Provider Nurse Practitioner Family
DX: K30 Functional dyspepsia (principal); R11.0 Nausea; K21.9 Gastro-esophageal reflux disease without esophagitis; R19.7 Diarrhea, unspecified
CPT/HCPCS: 0241U

== ENCOUNTER → 2022-06-17 16:23 | Outpatient (CLI) | payer OTHER, SELFPAY ==
[2022-06-17 17:58] LABS: Hematocrit 38.4 % (36-46); Hemoglobin 13.5 g/dL (12.0-16.0); Mean Corpuscular HGB Conc 35.1 % (30-36); Mean Corpuscular Hemoglobin 30.9 PG (26-34); Mean Corpuscular Volume 88.2 fL (80-100); Platelet Count 167 X10^3/uL (150-400); Red Blood Cell Count 4.36 X10^6/uL (4.0-5.2); Red Cell Distribution Width 12.9 % (11.6-14.8); White Blood Cell Count 5.9 X10^3/uL (4.5-11.0)
[2022-06-17 18:38] LABS: Alanine Aminotransferase 19 IU/L (<35); Albumin 4.4 g/dL (3.5-5.0); Albumin Globulin Ratio 1.4 (1.0-2.8); Alkaline Phosphatase 74 U/L (38-126); Aspartate Aminotransferase 26 IU/L (14-36); BUN Creatinine Ratio 26.2 (6-22); Bilirubin Total 0.2 mg/dL (0.2-1.3); Blood Urea Nitrogen 16 mg/dL (7-17); Calcium 9.3 mg/dL (8.4-10.2); Carbon Dioxide 30 mmol/L (22-32); Chloride 100 mmol/L (98-107); Estimated Glomerular Filt Rate > 60 mL/min (>60); Globulin 3.1 g/dL (1.7-4.1); Glucose 87 mg/dL (80-110); HEMOLYSIS < 15 (0-50); Potassium 3.9 mmol/L (3.4-5.1); Sodium 138 mmol/L (137-145); Total Protein 7.5 g/dL (6.3-8.2)
[2022-06-19 09:45] LABS: Interpretation Negative (Negative)
== END ==
PROVIDERS: PCP Family Medicine; Referring Provider Nurse Practitioner Family; Visit Provider Nurse Practitioner Family
DX: K21.9 Gastro-esophageal reflux disease without esophagitis (principal); R11.0 Nausea; R19.7 Diarrhea, unspecified; K30 Functional dyspepsia
CPT/HCPCS: 0241U; 36415; 80053; 83013; 85027

== ENCOUNTER → 2022-06-20 14:11 | Outpatient (CLI) | payer OTHER, SELFPAY ==
--- NOTE | 2022-06-20 14:12 | DI.MG.S_ITS ---
UNILATERAL RIGHT DIGITAL DIAGNOSTIC MAMMOGRAM 3D/2D: 06/20/2022 CLINICAL: Patient returns today to evaluate an asymmetry in the right breast. Comparison is made to exams dated: 06/10/2022 mammogram, 05/30/2021 mammogram, and 01/20/2020 mammogram - [facility]. There are scattered areas of fibroglandular density in the right breast (category b / 25%-50% glandular tissue). The equal density asymmetry in the right breast middle depth lateral region seen on the craniocaudal view only is not seen in additional views. No other significant masses or calcifications are seen in the breast. IMPRESSION: BENIGN The left breast asymmetry seen on the screening mammogram likely respresents superimposed fibroglandular tissue and is benign. There is no mammographic evidence of malignancy. A 1 year screening mammogram is recommended. Based on the Tyrer Cuzick model (a risk assessment model) the patient's lifetime risk is 7.1% and her 10 year risk is 3.7%. According to the ACR, ACS, and NCCN guidelines, an annual breast MRI exam along with mammogram is recommended if the patient's lifetime risk is 20% or greater. This exam was interpreted at Station ID: [id number]. NOTE: For mammograms, a report in lay terms will be sent to the patient. Approximately 15% of breast malignancies will not be visualized mammographically. In the management of a palpable breast mass, a negative mammogram must not discourage biopsy of a clinically suspicious lesion. Electronically Signed By: Grecia silva/:06/23/2022 16:30:15 Entry: - 06/23/2022 16:30:15 letter sent: Normal Exam ACR BI-RADS Category 2: Benign Finding(s) 3342F
== END ==
PROVIDERS: PCP Family Medicine; Referring Provider Family Medicine; Visit Provider Family Medicine
DX: R92.8 Other abnormal and inconclusive findings on diagnostic imaging of breast (principal)
CPT/HCPCS: 77065; G0279

== ENCOUNTER → 2023-01-08 07:17 | Outpatient (CLI) | payer MEDICARE, SELFPAY ==
[2023-01-08 08:15] LABS: Add Manual Diff / Slide Review NO; Basophils Absolute Auto 0 /uL (0-100); Basophils Percent Auto 0.6 % (0-2); Eosinophils Absolute Auto 100 /uL (0-450); Hematocrit 39.2 % (36-46); Hemoglobin 13.7 g/dL (12.0-16.0); Lymphocytes Absolute Auto 2400 /uL (1100-4500); Lymphocytes Percent Auto 47.8 % (25-40); Mean Corpuscular HGB Conc 34.9 % (30-36); Mean Corpuscular Hemoglobin 30.7 PG (26-34); Mean Corpuscular Volume 87.8 fL (80-100); Monocytes Absolute Auto 300 /uL (0-900); Neutrophils Absolute Auto 2300 /uL (1500-7000); Neutrophils Percent Auto 44.6 % (50-75); Platelet Count 192 X10^3/uL (150-400); Red Blood Cell Count 4.46 X10^6/uL (4.0-5.2); Red Cell Distribution Width 13.4 % (11.6-14.8); White Blood Cell Count 5.1 X10^3/uL (4.5-11.0)
[2023-01-08 08:43] LABS: Alanine Aminotransferase 18 IU/L (<35); Albumin 4.4 g/dL (3.5-5.0); Albumin Globulin Ratio 1.3 (1.0-2.8); Alkaline Phosphatase 62 U/L (38-126); Aspartate Aminotransferase 25 IU/L (14-36); BUN Creatinine Ratio 19.1 (6-22); Bilirubin Total 0.7 mg/dL (0.2-1.3); Blood Urea Nitrogen 13 mg/dL (7-17); Calcium 9.6 mg/dL (8.4-10.2); Carbon Dioxide 29 mmol/L (22-32); Chloride 100 mmol/L (98-107); Cholesterol 248 mg/dL (140-199); Estimated Glomerular Filt Rate > 60 mL/min (>60); Globulin 3.3 g/dL (1.7-4.1); Glucose 92 mg/dL (80-110); HDL Cholesterol 96 mg/dL (40-60); HEMOLYSIS < 15 (0-50); LDL Cholesterol Calculated 134 mg/dL (<100); Potassium 4.2 mmol/L (3.4-5.1); Sodium 139 mmol/L (137-145); Total Protein 7.7 g/dL (6.3-8.2); Triglycerides 89 mg/dL (35-150)
[2023-01-08 09:15] LABS: TSH w/ Reflex to FT4 1.41 uIU/mL (0.47-4.68)
== END ==
PROVIDERS: PCP Family Medicine; Referring Provider Family Medicine; Visit Provider Family Medicine
DX: E78.5 Hyperlipidemia, unspecified (principal); R11.0 Nausea; K21.9 Gastro-esophageal reflux disease without esophagitis; R19.7 Diarrhea, unspecified; J45.20 Mild intermittent asthma, uncomplicated
CPT/HCPCS: 36415; 80053; 80061; 84443; 85025

== ENCOUNTER 2023-01-20 08:12 | Day surgery (SDC) | payer MEDICARE, SELFPAY ==
--- NOTE | 2023-01-20 | PATH_ITS ---
[facility] Accession Number: [id number] No. of containers..01 Tissue . 01 Material submitted: . sigmoid colon - SIGMOID POLYP . 01 Diagnosis: Sigmoid Colon, Polyp: Tubular adenoma. [facility] 02/03/2023 0944 Local . 01 Electronically signed: . Keke Pierre MD, Pathologist NPI- [id number] . 01 Gross description: . SIGMOID POLYP: Received in formalin are 2 fragment(s) of gaines, soft tissue measuring 0.1 x 0.1 x 0.1 cm in aggregate submitted entirely in 1 cassette(s) /JUN 01/21/2023 1834 Local . 01 Pathologist provided ICD-10: D12.5 . 01 CPT . 693116 Specimen Comment: A courtesy copy of this report has been sent to [phone] Performed at: 01 [facility] [address] [place] [address], [place], [place] [id number] MD Giancarlo Álvarez MD Phone: [phone]
[2023-01-20 08:20] VITALS: BP 144/76; PULSE 69; RESP 18; TEMP 36.9; O2SAT 100; BMI 23.6
[2023-01-20] MEDS: LACTATED RINGERS 1,000 ML 150 ML IV (08:39)
--- NOTE | 2023-01-20 09:13 | PM.HP.1 ---
History of Present Illness History of Present Illness Date Patient Seen: 01/20/23 Time Patient Seen: 09:13 Chief complaint: SDC Narrative: 63-year-old woman with chronic GERD here for diagnostic esophagoduodenoscopy and screening colonoscopy. Please refer to the H and P from September 2022 for further detail. No significant interval changes in health. [facility] Medical History Cardiac arrhythmia (10/18/14) Left foot pain Osteoarthritis of right knee Osteoporosis Palpitations (12/30/16) Skin disorder Surgical History History of third molar tooth extraction History of tonsillectomy Family History Mother Age: 93 Heart disease High cholesterol Mental health problem Stroke Social History household members: spouse Smoking Status: Former smoker alcohol intake: current Meds Home Medications and Allergies Home Medications Medication Instructions Recorded Confirmed Type calcium See Rx Instructions .Route 09/22/18 01/20/23 Rx .COMPLEX #30 tabs cholecalciferol (vitamin D3) 25 1,000 unit PO DAILY #30 caps 09/22/18 01/20/23 Rx mcg (1,000 unit) capsule estradiol 0.01% (0.1 mg/gram) 0.5 g vaginal .once weekly #42.5 11/22/21 01/20/23 Rx vaginal cream (Estrace) grams omeprazole 20 mg capsule,delayed 20 mg PO DAILY 01/20/23 01/20/23 History release Allergies Allergy/AdvReac Type Severity Reaction Status Date / Time aspirin [ASPIRIN] Allergy Severe ANAPHYLAXIS Verified 01/20/23 08:40 ibuprofen Allergy Severe Anaphylaxis Verified 01/20/23 08:40 Penicillins [PENICILLINS] Allergy Mild A CHILD Verified 01/20/23 08:40 doxepin [DOXEPIN] AdvReac Intermediate tachycardia, Verified 01/20/23 08:40 dizziness Exam Vital Signs (past 8 hours): - 01/20/23 08:20 Temperature 98.4 F Pulse Rate 69 Respiratory Rate 18 Blood Pressure 144/76 H Pulse Oximetry 100 Oxygen Delivery Method Room Air Oxygen Delivery Method Room Air Narrative Exam Narrative: General adult woman alert oriented no acute distress Chest nonlabored respiration Extremities warm well perfused Assessment & Plan Assessment and plan (1) Gastroesophageal reflux disease: Qualifiers: Esophagitis presence: esophagitis presence not specified Qualified Code(s): K21.9 - Gastro-esophageal reflux disease without esophagitis Status: Acute Assessment & Plan narrative: 63-year-old woman with chronic GERD needs a diagnostic esophagoduodenoscopy and screening colonoscopy. Technical details were discussed. Risks, benefits, alternatives explained. Risks including but not limited to myocardial infarction, aspiration, bleeding, pain, missed lesion, incomplete examination, need for further radiographic studies, intestinal perforation, and need for major abdominal surgery were discussed. All questions were answered to their satisfaction, and they are in agreement with this plan.
--- NOTE | 2023-01-20 09:15 | P.OP.EGD&C_ITS ---
Operative Date/Time/Diagnoses Date of procedure: 01/20/23 Time of procedure: 09:49 Pre-op diagnosis: Chronic reflux Post-op diagnosis: other (Hiatal hernia, colonic polyp x1) Procedure & Clinicians Study performed: Diagnostic esophagoduodenoscopy Screening colonoscopy Same procedure as scheduled: Yes Indications: Uncontrolled GERD Colorectal screening Surgeon: Jean Claude Bender Procedure Notes Procedure in detail: The history and physical was performed/updated and the patient is ASA class is 2. The procedure was discussed in detail with the patient. Potential risks complications including infection, bleeding, missed diagnosis, perforation, need for surgery, and were explained. Their questions were answered and informed consent was obtained. Patient placed in left lateral decubitus position. Time out was performed. Procedural sedation was administered by Anesthesia. A bite block was placed. the scope was inserted into the mouth and advanced through the esophagus and into the stomach. The stomach was without masses, ulcers or gastritis. The pylorus was intubated and the duodenum was normal to the 2nd portion. The scope was retroflexed within the stomach. The scope was withdrawn into the esophagus the Z line was seen at 35 cm from the incisions. There was no Barker's esophagitis, esophageal masses or strictures. Stomach was desufflated and scope removed. Examination began with a thorough inspection of the perianal area there was no evidence of fissures, fistulae, external hemorrhoids or cutaneous malignancy. The colonoscopy scope was then placed into the anal canal and was advanced to the cecum, which was identified by the ileocecal valve, the appendiceal orifice and the confluence of the taenia. The scope was then slowly withdrawn examining colon thoroughly in all directions, irrigating it of any residual stool. The patient tolerated the procedure well. They will be discharged once criteria are met. The prep was of good/excellent quality. The withdrawl time was 8 minutes. Findings * Hiatal hernia Hill grade 2-3 * Normal GE junction 38 cm from incisors * Sigmoid colonic polyp 3 mm removed with biopsy forceps Specimen(s): other (sigmoid colonic polyp) Impression: Colonic polyp x 1 and hiatal hernia Post-procedure Plan for aftercare: Colonoscopy follow up dependent on pathology findings likely 5 years Hiatal hernia-follow up with surgical clinic if you would like to discuss operative repair or continue with Omeprazole therapy as written Disposition: same day surgery
[2023-01-20 09:46] VITALS: BP 104/67; PULSE 69; RESP 12; TEMP 36.1; O2SAT 99
[2023-01-20 09:51] VITALS: BP 112/73; PULSE 73; RESP 14; O2SAT 98
--- NOTE | 2023-01-20 09:55 | SUR.PHASEI ---
received to PACU after MAC. Report from LISA Guillen and Dr Eagle.
[2023-01-20 09:56] VITALS: BP 117/68; PULSE 70; RESP 12; O2SAT 99
[2023-01-20 10:01] VITALS: BP 118/72; PULSE 72; RESP 13; O2SAT 96
[2023-01-20 10:02] VITALS: BP 122/73; PULSE 62; RESP 15; O2SAT 99
== END 2023-01-20 10:23 | disposition home or self-care (01) ==
PROVIDERS: PCP Family Medicine; Referring Provider Surgery; Visit Provider Surgery
PROC: 0DJ08ZZ Inspection of Upper Intestinal Tract, Via Natural or Artificial Opening Endoscopic (ICD-10-PCS; CPT 43235; principal; 2023-01-20 09:15)
PROC: 0DJD8ZZ Inspection of Lower Intestinal Tract, Via Natural or Artificial Opening Endoscopic (ICD-10-PCS; CPT 45378; 2023-01-20 09:15)
DX: K21.9 Gastro-esophageal reflux disease without esophagitis (principal); K44.9 Diaphragmatic hernia without obstruction or gangrene; Z12.11 Encounter for screening for malignant neoplasm of colon; D12.5 Benign neoplasm of sigmoid colon
CPT/HCPCS: 45380; 43235

== ENCOUNTER 2023-02-02 13:44 | Emergency (ER) | payer MEDICARE, SELFPAY ==
[2023-02-02 13:55] VITALS: BP 147/70; PULSE 61; RESP 16; TEMP 36.9; O2SAT 100; BMI 23.6
--- NOTE | 2023-02-02 14:03 | DI.RAD.S_ITS ---
PROCEDURE: XR RIBS LT MIN 3V W CXR1V INDICATIONS: Rib pain TECHNIQUE: 3 views of the left ribs were acquired, along with a single view chest. COMPARISON: None. FINDINGS: Surgical changes and devices: None. Bones and chest wall: No fractures or dislocations. No suspicious bony lesions. Overlying soft tissues appear unremarkable. Lungs and pleura: No pleural effusions or pneumothorax. Lungs appear clear. Mediastinum: Mediastinal contours appear normal. Heart size is normal. IMPRESSION: No visualized acute fracture or dislocation. However, if clinical concern and/or pain persist, short interval imaging followup in 7-10 days is recommended, as occult injury cannot be definitively excluded. Dictated by: Selma Grant M.D. on 02/02/2023 at 15:18 Approved by: Selma Grnat M.D. on 02/02/2023 at 15:19
--- NOTE | 2023-02-02 14:13 | PC.NURSE ---
Patient had a colonoscopy/endoscopy on 01/20. On 01/26 she was bending over and felt a sudden pain in her left ribs. Pain has not gone away since then.
--- NOTE | 2023-02-02 14:25 | ED_ITS ---
HPI - Back Pain/Injury <Quyen Robison PA-C - Last Filed: 02/02/23 16:09> General Chief Complaint: Back Pain/Injury Stated Complaint: L side pain getting worse Time Seen by Provider: 02/02/23 14:07 Source: patient History of Present Illness HPI Narrative: 63-year-old female with past medical history GERD, osteoarthritis, asthma, osteoporosis presents to the ED with 1 week of left upper quadrant pain. Patient states that she had a endoscopy and colonoscopy on 01/20/2023, was diagnosed with a hiatal hernia, 1 polyp that has been sent for biopsy. Patient states that she felt bloated after the procedures, however things calm down a week later. On the 26 of January, patient felt a stabbing pain in the left upper when she leaned forward to lemon picker something from the floor. Patient at assume that it was a muscle pull, however it has remained a nagging pain in the left upper quadrant. Patient states that the pain is worsened when she bends forward, feels better when she is sitting straight up or leaning back. Patient denies fever, chills, chest pain, shortness of breath, nausea, vomiting, diarrhea, constipation, hematochezia, melena, lightheadedness, dizziness, syncope. Patient describes the pain as she feels like something is pushing from within. Related Data Home Medications Medication Instructions Recorded Confirmed omeprazole 20 mg capsule,delayed 20 mg PO DAILY 01/20/23 01/20/23 release Previous Rx's Medication Instructions Recorded calcium See Rx Instructions .Route 09/22/18 .COMPLEX #30 tabs cholecalciferol (vitamin D3) 25 1,000 unit PO DAILY #30 caps 09/22/18 mcg (1,000 unit) capsule estradiol 0.01% (0.1 mg/gram) 0.5 g vaginal .once weekly #42.5 11/22/21 vaginal cream (Estrace) grams Allergies Allergy/AdvReac Type Severity Reaction Status Date / Time aspirin [ASPIRIN] Allergy Severe ANAPHYLAXIS Verified 02/02/23 14:03 ibuprofen Allergy Severe Anaphylaxis Verified 02/02/23 14:03 Penicillins [PENICILLINS] Allergy Mild A CHILD Verified 02/02/23 14:03 doxepin [DOXEPIN] AdvReac Intermediate tachycardia, Verified 02/02/23 14:03 dizziness Review of Systems <Quyen Robison PA-C - Last Filed: 02/02/23 16:09> Constitutional Constitutional: Denies chills, Denies fatigue, Denies fever(s), Denies frequent falls, Denies lethargy and Denies weakness Eyes Eyes: Denies change in vision, Denies eye discharge, Denies irritation and Denies loss of vision ENT Ears, Nose, Mouth, and Throat: Denies change in voice, Denies dizziness, Denies neck pain, Denies sore throat and Denies throat swelling Cardiovascular Cardiovascular: Denies chest pain, Denies irregular heart rhythm, Denies lightheadedness, Denies palpitations, Denies dyspnea, Denies dyspnea on exertion and Denies orthopnea Respiratory Respiratory: Denies cough, Denies dyspnea, Denies dyspnea on exertion and Denies wheezing Gastrointestinal Gastrointestinal: Reports abdominal pain, Denies change in bowel habits, Denies diarrhea, Denies nausea and Denies vomiting Musculoskeletal Musculoskeletal: Denies neck pain and Denies numbness Integumentary/Breasts Skin/Breast: Denies pruritus, Denies erythema, Denies rash and Denies wounds Neurologic Neurologic: Denies behavioral changes, Denies confusion, Denies dizziness, Denies frequent falls, Denies loss of vision, Denies numbness and Denies weakness Psychiatric Psychiatric: Denies anxiety, Denies behavioral changes, Denies confusion, Denies depression, Denies homicidal ideation and Denies suicidal ideation Endocrine Endocrine: Denies fatigue, Denies flushing and Denies palpitations Hematologic/Lymphatic Hematologic/Lymphatic: Denies easy bruising Allergic/Immunologic Allergic/Immunologic: Denies urticaria, Denies throat swelling and Denies wheezing Patient History <Quyen Robison PA-C - Last Filed: 02/02/23 16:09> Medical History Osteoarthritis of right knee Left foot pain Skin disorder Osteoporosis Palpitations (12/30/16) Cardiac arrhythmia (10/18/14) Surgical History History of third molar tooth extraction History of tonsillectomy Family History Mother Age: 93 Heart disease High cholesterol Mental health problem Stroke Social History household members: spouse Smoking Status: Former smoker alcohol intake: current Smoking Status: Former smoker alcohol intake frequency: a few times a week Substance Use Type: does not use Exam <Quyen Robison PA-C - Last Filed: 02/02/23 16:09> Narrative Exam Narrative: Const General:?cooperative, healthy appearing and comfortable HENVA Head:?normal to inspection Ears:?hearing grossly normal bilaterally Nose:?external nose normal Face and sinus:?normal facial exam and sinuses nontender Mouth:?oral mucosae normal Throat:?posterior oropharynx normal Eyes General:?appearance normal, both eyes and all related structures Neck Neck:?normal visual inspection and no lymphadenopathy noted Resp Effort & Inspection:?normal respiratory effort Auscultation:?clear to auscultation bilaterally Cardio Rate:?regular rate Rhythm:?regular rhythm GI Abdomen is soft, nondistended. Abdomen is very tender to palpation in the left upper quadrant. There is mild tenderness to palpation of the right lower quadrant. There is no CVA tenderness. There is no bony tenderness to palpation of the left lower ribs. Neuro General:?patient alert, patient awake and patient oriented x3 Initial Vital Signs Initial Vital Signs: Vital Signs Temperature 98.5 F 02/02/23 13:55 Pulse Rate 61 02/02/23 13:55 Respiratory Rate 16 02/02/23 13:55 Blood Pressure 147/70 H 02/02/23 13:55 Pulse Oximetry 100 02/02/23 13:55 Oxygen Delivery Method Room Air 02/02/23 13:55 <Vania Kamara DO - Last Filed: 02/03/23 11:27> Initial Vital Signs Initial Vital Signs: Vital Signs Temperature 98.5 F 02/02/23 13:55 Pulse Rate 61 02/02/23 13:55 Respiratory Rate 16 02/02/23 13:55 Blood Pressure 147/70 H 02/02/23 13:55 Pulse Oximetry 100 02/02/23 13:55 Oxygen Delivery Method Room Air 02/02/23 13:55 Course <Quyen Robison PA-C - Last Filed: 02/02/23 16:09> Orders Ordered: Discontinued Medications Acetaminophen (Acetaminophen 325 Mg Tablet) 975 mg PO NOW ONE Stop: 02/02/23 14:39 Last Admin: 02/02/23 14:42 Dose: 975 mg Documented By: ES Vital Signs Vital signs: Vital Signs - 8 hr 02/02/23 13:55 Temperature 98.5 F Pulse Rate 61 Respiratory Rate 16 Blood Pressure 147/70 H Pulse Oximetry 100 Oxygen Delivery Method Room Air <Vania Kamara DO - Last Filed: 02/03/23 11:27> Orders Ordered: Discontinued Medications Acetaminophen (Acetaminophen 325 Mg Tablet) 975 mg PO NOW ONE Stop: 02/02/23 14:39 Last Admin: 02/02/23 14:42 Dose: 975 mg Documented By: ES Vital Signs Vital signs: Vital Signs - 8 hr 02/02/23 13:55 Temperature 98.5 F Pulse Rate 61 Respiratory Rate 16 Blood Pressure 147/70 H Pulse Oximetry 100 Oxygen Delivery Method Room Air MDM - Back Pain/Injury <Quyen Robison PA-C - Last Filed: 02/02/23 16:09> Lab Data 02/02/23 14:49 02/02/23 14:49 Labs: Lab Results 02/02/23 Range/Units 14:49 WBC 5.9 (4.5-11.0) X10^3/uL RBC 4.37 (4.0-5.2) X10^6/uL Hgb 13.2 (12.0-16.0) g/dL Hct 38.9 (36-46) % MCV 89.0 (80-100) fL MCH 30.3 (26-34) PG MCHC 34.0 (30-36) % RDW 13.6 (11.6-14.8) % Plt Count 182 (150-400) X10^3/uL Neut % (Auto) 59.3 (50-75) % Lymph % (Auto) 34.3 (25-40) % [place] % (Auto) 4.9 (3-14) % Eos % (Auto) 0.8 L (2-4) % Baso % (Auto) 0.7 (0-2) % Neut # (Auto) 3500 (2585-0614) /uL Lymph # (Auto) 2000 (2611-2656) /uL [place] # (Auto) 300 (0-900) /uL Eos # (Auto) 0 (0-450) /uL Baso # (Auto) 0 (0-100) /uL Sodium 139 (137-145) mmol/L Potassium 3.6 (3.4-5.1) mmol/L Chloride 100 (98-107) mmol/L Carbon Dioxide 30 (22-32) mmol/L BUN 13 (7-17) mg/dL Creatinine 0.62 (0.52-1.04) mg/dL Estimated GFR > 60 (>60) mL/min BUN/Creatinine Ratio 21.0 (6-22) Glucose 99 (80-110) mg/dL Calcium 9.7 (8.4-10.2) mg/dL Total Bilirubin 0.5 (0.2-1.3) mg/dL AST 33 (14-36) IU/L ALT 28 (<35) IU/L Alkaline Phosphatase 69 (38-126) U/L Total Protein 8.4 H (6.3-8.2) g/dL Albumin 4.7 (3.5-5.0) g/dL Globulin 3.7 (1.7-4.1) g/dL Albumin/Globulin Ratio 1.3 (1.0-2.8) Lipase 144 (23-300) U/L MDM Narrative Medical decision making narrative: 63-year-old female with past medical history GERD, osteoarthritis, asthma, osteoporosis presents to the ED with 1 week of left upper quadrant pain. Physical exam is significant for left upper and lower quadrant tenderness. Concern for diverticulitis versus musculoskeletal sprain/strain versus rib fracture versus other intra-abdominal pathology versus other. Will obtain labs, CT abdomen pelvis. Will give Tylenol for pain. Will reassess. Labs within normal limits and CT without acute findings. While it is unclear exact etiology of patient's pain, could likely be musculoskeletal in etiology especially given that pain is aggravated with movement. Recommend Tylenol. Recommend follow-up with PCP as soon as possible. ED return precautions discussed with patient. Patient verbalized understanding. Medical records reviewed: Yes <Vania Kamara DO - Last Filed: 02/03/23 11:27> Lab Data Labs: Lab Results 02/02/23 Range/Units 14:49 WBC 5.9 (4.5-11.0) X10^3/uL RBC 4.37 (4.0-5.2) X10^6/uL Hgb 13.2 (12.0-16.0) g/dL Hct 38.9 (36-46) % MCV 89.0 (80-100) fL MCH 30.3 (26-34) PG MCHC 34.0 (30-36) % RDW 13.6 (11.6-14.8) % Plt Count 182 (150-400) X10^3/uL Neut % (Auto) 59.3 (50-75) % Lymph % (Auto) 34.3 (25-40) % [place] % (Auto) 4.9 (3-14) % Eos % (Auto) 0.8 L (2-4) % Baso % (Auto) 0.7 (0-2) % Neut # (Auto) 3500 (2218-8467) /uL Lymph # (Auto) 2000 (2863-0505) /uL [place] # (Auto) 300 (0-900) /uL Eos # (Auto) 0 (0-450) /uL Baso # (Auto) 0 (0-100) /uL Sodium 139 (137-145) mmol/L Potassium 3.6 (3.4-5.1) mmol/L Chloride 100 (98-107) mmol/L Carbon Dioxide 30 (22-32) mmol/L BUN 13 (7-17) mg/dL Creatinine 0.62 (0.52-1.04) mg/dL Estimated GFR > 60 (>60) mL/min BUN/Creatinine Ratio 21.0 (6-22) Glucose 99 (80-110) mg/dL Calcium 9.7 (8.4-10.2) mg/dL Total Bilirubin 0.5 (0.2-1.3) mg/dL AST 33 (14-36) IU/L ALT 28 (<35) IU/L Alkaline Phosphatase 69 (38-126) U/L Total Protein 8.4 H (6.3-8.2) g/dL Albumin 4.7 (3.5-5.0) g/dL Globulin 3.7 (1.7-4.1) g/dL Albumin/Globulin Ratio 1.3 (1.0-2.8) Lipase 144 (23-300) U/L Discharge Plan Departure Patient Disposition: Home Clinical Impression: Abdominal pain Qualifiers: Abdominal location: left upper quadrant Qualified Code(s): R10.12 - Left upper quadrant pain Instructions: DI for Abdominal Pain-Adult Activity Restrictions/Additional Instructions: You were evaluated in the ED today for left upper abdominal pain. Your labs and CT scan were normal. While it is unclear the exact cause of your pain, it can likely be a musculoskeletal sprain/strain. You may continue to take Tylenol at home. Please follow-up with your PCP as soon as possible. Return to the ED if you have worsening symptoms, chest pain, shortness of breath. Prescriptions: No Action cholecalciferol (vitamin D3) 1,000 unit capsule 1,000 unit PO DAILY Qty: 30 0RF calcium See Rx Instructions .ROUTE .COMPLEX Qty: 30 0RF Rx Instructions: Dose needs to be confirmed estradiol [Estrace] 0.01 % (0.1 mg/gram) cream 0.5 g VAG .once weekly Qty: 42.5 2RF omeprazole 20 mg Capsule,Delayed Release(Dr/Ec) 20 mg PO DAILY Referrals: Danny Rock MD [Primary Care Provider] - Stand Alone Forms: Patient Portal/API ED Sign-out <Vania Kamara DO - Last Filed: 02/03/23 11:27> Cosign ED Attending Cosmeghaature Attestation: I was immediately available in the department for consultation.
--- NOTE | 2023-02-02 14:34 | DI.CT.S_ITS ---
PROCEDURE: CT ABDOMEN PELVIS W CON INDICATIONS: LUQ pain TECHNIQUE: After the administration of intravenous contrast, axial sections acquired from the lung bases to the pubic symphysis. Coronal and sagittal reformats were performed. For radiation dose reduction, the following was used: automated exposure control, adjustment of mA and/or kV according to patient size. COMPARISON: None. FINDINGS: Image quality: Excellent. Lung bases: Unremarkable. Heart: No significant findings. ABDOMEN: Liver: Unremarkable. Gallbladder: Unremarkable. Biliary ducts: Unremarkable. Pancreas: Unremarkable. Spleen: Unremarkable. Adrenal Glands: Unremarkable. Kidneys and Ureters: Unremarkable. Stomach and Bowel: Stomach, small bowel loops, and colon are unremarkable. Normal appendix. Peritoneum: No abnormal intraperitoneal fluid. No free air. Ventral Wall: No hernias. Abdominal Nodes: No retroperitoneal or mesenteric adenopathy by size criteria. Vessels: Aorta and inferior vena cava are normal in size. PELVIS: Pelvic Organs: Unremarkable. Bladder: Decompressed Pelvic Nodes: No enlarged lymph nodes. Miscellaneous: No hernias are seen. Bones: Unremarkable. IMPRESSION: 1. No acute process. 2. Normal appendix. Dictated by: Macy Wolfe M.D. on 02/02/2023 at 15:15 Approved by: Macy Wolfe M.D. on 02/02/2023 at 15:16
[2023-02-02] MEDS: ACETAMINOPHEN 325 MG TABLET 975 MG PO (14:42)
[2023-02-02 14:59] LABS: Add Manual Diff / Slide Review NO; Basophils Absolute Auto 0 /uL (0-100); Basophils Percent Auto 0.7 % (0-2); Eosinophils Absolute Auto 0 /uL (0-450); Eosinophils Percent Auto 0.8 % (2-4); Hematocrit 38.9 % (36-46); Hemoglobin 13.2 g/dL (12.0-16.0); Lymphocytes Absolute Auto 2000 /uL (1100-4500); Lymphocytes Percent Auto 34.3 % (25-40); Mean Corpuscular Hemoglobin 30.3 PG (26-34); Monocytes Absolute Auto 300 /uL (0-900); Monocytes Percent Auto 4.9 % (3-14); Neutrophils Absolute Auto 3500 /uL (1500-7000); Neutrophils Percent Auto 59.3 % (50-75); Platelet Count 182 X10^3/uL (150-400); Red Blood Cell Count 4.37 X10^6/uL (4.0-5.2); Red Cell Distribution Width 13.6 % (11.6-14.8); White Blood Cell Count 5.9 X10^3/uL (4.5-11.0)
[2023-02-02 15:11] LABS: Alanine Aminotransferase 28 IU/L (<35); Albumin 4.7 g/dL (3.5-5.0); Albumin Globulin Ratio 1.3 (1.0-2.8); Alkaline Phosphatase 69 U/L (38-126); Aspartate Aminotransferase 33 IU/L (14-36); Bilirubin Total 0.5 mg/dL (0.2-1.3); Blood Urea Nitrogen 13 mg/dL (7-17); Calcium 9.7 mg/dL (8.4-10.2); Carbon Dioxide 30 mmol/L (22-32); Chloride 100 mmol/L (98-107); Estimated Glomerular Filt Rate > 60 mL/min (>60); Globulin 3.7 g/dL (1.7-4.1); Glucose 99 mg/dL (80-110); HEMOLYSIS < 15 (0-50); Lipase 144 U/L (23-300); Potassium 3.6 mmol/L (3.4-5.1); Sodium 139 mmol/L (137-145); Total Protein 8.4 g/dL (6.3-8.2)
== END 2023-02-02 16:03 | disposition home or self-care (01) ==
PROVIDERS: Emergency Provider Student in an Organized Health Care Education/Training Program; PCP Family Medicine
DX: R10.12 Left upper quadrant pain (principal)
CPT/HCPCS: 36415; 71101; 74177; 80053; 83690; 85025; 99283; 99284; Q9967

== ENCOUNTER → 2023-02-05 11:41 | Outpatient (CLI) | payer MEDICARE, SELFPAY ==
--- NOTE | 2023-02-05 12:00 | DI.RAD.S_ITS ---
Bone Density Report Name: ROBERT TAPIA Age: 63 Sex: Female Ethnicity: White Date of : 1960 Indication: postmenopausal osteoporosis; Referring Provider: JONATHAN RAY Study: Bone densitometry was performed. Exam Date: February 05, 2023 Accession number: [id number] Bone Density: Region BMD T-score Z-score Classification AP Spine(L3, L4) 0.729 -3.4 -1.5 Osteoporosis Femoral Neck (Left) 0.543 -2.8 -1.3 Osteoporosis Total Hip (Left) 0.706 -1.9 -0.7 Osteopenia Femoral Neck (Right) 0.566 -2.5 -1.0 Osteoporosis Total Hip (Right) 0.716 -1.9 -0.6 Osteopenia Total Hip Mean 0.711 -1.9 -0.7 Osteopenia World Health Organization criteria for BMD impression classify patients as: Normal (T-score at or above -1.0), Osteopenia (T-score between -1.0 and -2.5), or Osteoporosis (T-score at or below -2.5). 10-year Fracture Risk: FRAX not reported because: Some T-score for Spine Total or Hip Total or Femoral Neck at or below -2.5 Previous Exams: -- Region Exam Age BMD T-score BMD Change BMD Change Date g/cm2 vs Baseline vs Previous -- AP Spine (L3-L4) 02/05/2023 63 0.729 -3.4 0.001 (0.1%)# 0.009 (1.2%) 08/09/2021 61 0.720 -3.5 -0.008 (-1.1%)# -0.013 (-1.7%)# 11/16/2020 60 0.733 -3.3 0.005 (0.6%) 0.027 (3.8%)* 10/05/2019 59 0.706 -3.6 -0.022 (-3.0%) -0.008 (-1.1%) 09/20/2018 58 0.714 -3.5 -0.014 (-1.9%) -0.014 (-1.9%) 01/12/2017 57 0.728 -3.4 Total Hip(Left) 02/05/2023 63 0.706 -1.9 0.046 (6.9%)# -0.018 (-2.4%) 08/09/2021 61 0.724 -1.8 0.063 (9.6%)# 0.017 (2.4%)# 11/16/2020 60 0.707 -1.9 0.047 (7.1%)* 0.016 (2.3%) 10/05/2019 59 0.692 -2.1 0.031 (4.7%)* 0.015 (2.2%) 09/20/2018 58 0.677 -2.2 0.016 (2.5%) 0.016 (2.5%) 01/12/2017 57 0.661 -2.3 Total Hip(Right) 02/05/2023 63 0.716 -1.9 0.000 (0.1%)# -0.020 (-2.8%) 08/09/2021 61 0.737 -1.7 0.021 (2.9%)# 0.023 (3.3%)# 11/16/2020 60 0.713 -1.9 -0.003 (-0.4%) -0.028 (-3.7%)* 10/05/2019 59 0.741 -1.6 0.025 (3.5%) 0.050 (7.2%)* 09/20/2018 58 0.692 -2.1 -0.024 (-3.4%) -0.024 (-3.4%) 01/12/2017 57 0.716 -1.9 -- *Denotes significance at 95% confidence level, LSC for AP Spine = 0.022 g/cm2, LSC for Total Hip = 0.027 g/cm2 Rate of change results reflect vertebral levels common to all scans # Denotes dissimilar scan types or analysis methods Impression: The patient has osteoporosis, based on the Total Spine T-score. No significant bone loss was observed. Discussion: INCREASED RISK OF FRACTURE. BONE DENSITY IS UNDESIRABLY LOW AT ONE OR MORE SKELETAL SITES, CONSISTENT WITH POSTMENOPAUSAL OSTEOPOROSIS. This patient's lowest T-score meets the World Health Organization's (WHO) criteria for osteoporosis at one or more sites (T-score -2.5 or below). In untreated patients, the risk of osteoporotic fracture increases approximately two-fold for each 1.0 SD decrease in T-score. Low bone density is not the only risk factor for fracture; also consider factors such as patient's age, frailty or poor health, risk of falling, risk of injury, previous osteoporotic fracture, family history of osteoporosis, cigarette smoking, low body weight, etc. Not everyone with low bone mineral density has osteoporosis; osteomalacia and other metabolic bone disorders should also be considered. Patients who have osteoporosis should be evaluated for specific diseases and conditions (secondary causes) that may cause or contribute to bone loss. The [place] [employer]ocrinologists (AACE) and National Osteoporosis Foundation (NOF) recommend pharmacologic intervention for all postmenopausal women whose T-score is in this range. The patient should follow a healthful lifestyle (good nutrition with adequate calcium and vitamin D, and appropriate weight-bearing exercise). Follow-Up: Consider a repeat BMD and Vertebral Fracture Assessment (VFA) exam in 2 years or sooner if medically necessary, to reassess this patient's status. Reported by: ISABEL KANG M.D. on 02/05/2023 12:12:00 PM.
== END ==
PROVIDERS: PCP Family Medicine; Referring Provider Family Medicine; Visit Provider Family Medicine
DX: N95.9 Unspecified menopausal and perimenopausal disorder (principal); M81.0 Age-related osteoporosis without current pathological fracture; K44.9 Diaphragmatic hernia without obstruction or gangrene
CPT/HCPCS: 77080; 99212

== ENCOUNTER → 2023-05-12 11:54 | Outpatient (CLI) | payer MEDICARE, SELFPAY ==
[2023-05-12 13:42] LABS: Vitamin D 25 Hydroxy (D3) 54.8 ng/mL (30.0-100.0)
[2023-05-15 09:47] LABS: Calcium 9.4 mg/dL (8.7-10.3); Parathyroid Hormone, Intact 38 pg/mL (15-65)
== END ==
PROVIDERS: PCP Family Medicine; Referring Provider Family Medicine; Visit Provider Family Medicine
DX: M81.0 Age-related osteoporosis without current pathological fracture (principal); K21.9 Gastro-esophageal reflux disease without esophagitis
CPT/HCPCS: 36415; 82306; 82310; 83970

== ENCOUNTER → 2023-05-18 13:06 | Outpatient (CLI) | payer MEDICARE, SELFPAY ==
--- NOTE | 2023-05-18 13:07 | DI.RAD.S_ITS ---
PROCEDURE: FL BARIUM SWALLOW INDICATIONS: eval hiatal hernia COMPARISON: [facility], CT, CT ABDOMEN PELVIS W CON, 02/02/2023, 14:54. FINDINGS: Function: There is normal esophageal peristalsis. No elicited gastroesophageal reflux. There is normal transit of a calibrated barium tablet through the esophagus into the stomach. Morphology: Air-contrast images demonstrate normal mucosal morphology. Single contrast views show no esophageal strictures, extrinsic mass effects, or diverticula. Limited images of the stomach demonstrate normal appearance. IMPRESSION: Normal esophagram. No significant hiatal hernia is seen. No elicited gastroesophageal reflux. Approved by: Bowen Cabrera M.D. on 05/18/2023 at 14:44
== END ==
LOC: RAD 13:07
PROVIDERS: PCP Family Medicine; Referring Provider Surgery; Visit Provider Surgery
DX: K44.9 Diaphragmatic hernia without obstruction or gangrene (principal)
CPT/HCPCS: 74220

== ENCOUNTER → 2023-07-15 09:58 | Outpatient (CLI) | payer MEDICARE, SELFPAY ==
--- NOTE | 2023-07-15 09:59 | DI.MG.S_ITS ---
BILATERAL DIGITAL SCREENING MAMMOGRAM 3D/2D WITH CAD: 07/15/2023 CLINICAL: Routine screening. Family history of breast cancer. Comparison is made to exams dated: 06/20/2022 mammogram, 06/10/2022 mammogram, 05/30/2021 mammogram, and 01/20/2020 mammogram - [facility]. There are scattered areas of fibroglandular density in both breasts (category b / 25%-50% glandular tissue). Current study was also evaluated with a Computer Aided Detection (CAD) system. No significant masses, calcifications, or other findings are seen in either breast. There has been no significant interval change. IMPRESSION: NEGATIVE There is no mammographic evidence of malignancy. A 1 year screening mammogram is recommended. Based on the Tyrer Cuzick model (a risk assessment model) the patient's lifetime risk is 6.9% and her 10 year risk is 3.3%. According to the ACR, ACS, and NCCN guidelines, an annual breast MRI exam along with mammogram is recommended if the patient's lifetime risk is 20% or greater. This exam was interpreted at Station ID: [id number]. NOTE: For mammograms, a report in lay terms will be sent to the patient. Approximately 15% of breast malignancies will not be visualized mammographically. In the management of a palpable breast mass, a negative mammogram must not discourage biopsy of a clinically suspicious lesion. Electronically Signed By: Juliana Brown M.D., Ph.D. hung/mora:07/15/2023 13:45:27 letter sent: Normal Exam ACR BI-RADS Category 1: Negative [id number]
== END ==
PROVIDERS: PCP Family Medicine; Referring Provider Family Medicine; Visit Provider Family Medicine
DX: Z12.31 Encounter for screening mammogram for malignant neoplasm of breast (principal); Z80.3 Family history of malignant neoplasm of breast; R92.323 Mammographic fibroglandular density, bilateral breasts
CPT/HCPCS: 77063; 77067

== ENCOUNTER → 2024-01-12 09:21 | Outpatient (CLI) | payer MEDICARE, SELFPAY ==
--- NOTE | 2024-01-12 09:22 | DI.RAD.S_ITS ---
PROCEDURE: XR SHOULDER RT MIN 2V INDICATIONS: Right shoulder pain; suspect AC tendinitis vs bursitis TECHNIQUE: 3 views of the shoulder were acquired. COMPARISON: None. FINDINGS: Bones: No fractures or dislocations. Mild acromioclavicular joint degeneration. No suspicious bony lesions. Visualized ribs appear intact. Soft tissues: Calcification adjacent to the superior lateral humeral head. IMPRESSION: 1. No acute osseous abnormalities. 2. Mild acromioclavicular joint degeneration. 3. Calcification adjacent to the superior lateral humeral head, may represent calcific tendinopathy of the rotator cuff. Dictated by: Asa Heller M.D. on 01/12/2024 at 14:11 Approved by: Asa Heller M.D. on 01/12/2024 at 14:12
== END ==
PROVIDERS: PCP Family Medicine; Referring Provider Physician Assistant; Visit Provider Physician Assistant
DX: M19.011 Primary osteoarthritis, right shoulder (principal); M25.511 Pain in right shoulder
CPT/HCPCS: 73030

== ENCOUNTER → 2024-03-16 08:06 | Outpatient (CLI) | payer MEDICARE, OTHER, SELFPAY ==
--- NOTE | 2024-03-16 08:09 | DI.MRI.S_ITS ---
PROCEDURE: MR HUMERUS RT WO CON INDICATIONS: Pain in Rt shoulder 3 months TECHNIQUE: Noncontrast coronal and sagittal T1 spin echo and STIR; axial T1 spin echo and T2 fast spin echo with fat saturation through the right humerus. COMPARISON: None. FINDINGS: Image quality: Excellent. Bones: Subchondral marrow edema at the greater tuberosity, previously better described on MRI shoulder report of the same day. No acute fracture. No marrow replacing lesion in the right humerus. Soft tissues: The scanned muscles demonstrate normal overall bulk and internal signal. Subcutaneous tissues appear normal as well. No soft tissue masses are present. IMPRESSION: 1. Subchondral marrow edema at the greater tuberosity, better described on MRI report of the same day. 2. Otherwise unremarkable exam. Dictated by: Lian Hazel M.D. on 03/16/2024 at 11:14 Approved by: Lian Hazel M.D. on 03/16/2024 at 11:22
--- NOTE | 2024-03-16 08:09 | DI.MRI.S_ITS ---
PROCEDURE: MR SHOULDER RT WO CON INDICATIONS: Pain in Rt shoulder 3 months TECHNIQUE: Noncontrast oblique coronal T2 fast spin echo with fat saturation, oblique sagittal T1 spin echo and T2 fast spin echo with fat saturation, axial T1 spin echo and T2 fast spin echo with fat saturation through the shoulder. COMPARISON: None. FINDINGS: Image quality: Excellent. 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 There is low-grade interstitial tear at the mid footprint of the supraspinatus, extending to the critical zone. Additional low-grade interstitial tear at the footprint of the junction supraspinatus and infraspinatus. Mild tendinosis of the supraspinatus and infraspinatus. The the teres minor is unremarkable. Mild tendinosis of the subscapularis, without tear. No muscle edema or fatty atrophy. Bones and bursae: Mild degenerative changes of the acromioclavicular joint. Type 1 acromion. No os acromiale. Mild subacromial/subdeltoid bursitis. Moderate subchondral marrow edema in the anterior greater tuberosity with mild subchondral cystic changes, favor reactive. Additional mild subchondral cystic changes in the posterior greater tuberosity, reactive as well. No acute fracture. Diffuse chondral thinning in the glenoid. Capsule and soft tissues: Tear of the superior labrum. No paralabral cyst. Mild tenosynovitis of the extra-articular biceps tendon. Mild tendinosis of the intra-articular biceps tendon. Trace glenohumeral effusion. No intra-articular body. IMPRESSION: 1. Mild degenerative changes of the acromioclavicular joint. 2. 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 3. Low-grade tear of the supraspinatus and infraspinatus, with moderate reactive subchondral marrow edema at the greater tuberosity. 4. Mild tendinosis of the intra-articular biceps tendon. Dictated by: Lian Hazel M.D. on 03/16/2024 at 11:02 Approved by: Lian Hazel M.D. on 03/16/2024 at 11:14
== END ==
PROVIDERS: PCP Family Medicine; Referring Provider Family Medicine; Visit Provider Family Medicine
DX: M75.111 Incomplete rotator cuff tear or rupture of right shoulder, not specified as traumatic (principal); M75.51 Bursitis of right shoulder; M65.911 Unspecified synovitis and tenosynovitis, right shoulder; R60.0 Localized edema; M25.511 Pain in right shoulder
CPT/HCPCS: 73218; 73221

== ENCOUNTER → 2024-03-30 07:16 | Outpatient (CLI) | payer MEDICARE, OTHER, SELFPAY ==
[2024-03-30 08:07] LABS: Add Manual Diff / Slide Review NO; Basophils Absolute Auto 0 /uL (0-100); Basophils Percent Auto 0.5 % (0-2); Eosinophils Absolute Auto 0 /uL (0-450); Eosinophils Percent Auto 0.3 % (2-4); Hematocrit 40.6 % (36-46); Hemoglobin 13.7 g/dL (12.0-16.0); Lymphocytes Absolute Auto 2300 /uL (1100-4500); Lymphocytes Percent Auto 44.1 % (25-40); Mean Corpuscular HGB Conc 33.7 % (30-36); Mean Corpuscular Hemoglobin 30.5 PG (26-34); Mean Corpuscular Volume 90.5 fL (80-100); Monocytes Absolute Auto 300 /uL (0-900); Monocytes Percent Auto 5.4 % (3-14); Neutrophils Absolute Auto 2600 /uL (1500-7000); Neutrophils Percent Auto 49.7 % (50-75); Platelet Count 187 X10^3/uL (150-400); Red Blood Cell Count 4.48 X10^6/uL (4.0-5.2); Red Cell Distribution Width 13.4 % (11.6-14.8); White Blood Cell Count 5.3 X10^3/uL (4.5-11.0)
[2024-03-30 08:39] LABS: Alanine Aminotransferase 19 IU/L (<35); Albumin 4.9 g/dL (3.5-5.0); Albumin Globulin Ratio 1.7 (1.0-2.8); Alkaline Phosphatase 60 U/L (38-126); Aspartate Aminotransferase 27 IU/L (14-36); BUN Creatinine Ratio 22.2 (6-22); Bilirubin Total 0.7 mg/dL (0.2-1.3); Blood Urea Nitrogen 16 mg/dL (7-17); Calcium 9.4 mg/dL (8.4-10.2); Carbon Dioxide 28 mmol/L (22-32); Chloride 101 mmol/L (98-107); Cholesterol 248 mg/dL (140-199); Estimated Glomerular Filt Rate > 60 mL/min (>60); Globulin 2.9 g/dL (1.7-4.1); Glucose 83 mg/dL (80-110); HEMOLYSIS < 15 (0-50); Potassium 4.4 mmol/L (3.4-5.1); Sodium 138 mmol/L (137-145); Total Protein 7.8 g/dL (6.3-8.2); Triglycerides 55 mg/dL (35-150)
[2024-03-30 08:47] LABS: HDL Cholesterol 121 mg/dL (40-60); LDL Cholesterol Calculated 116 mg/dL (<100)
[2024-03-30 08:56] LABS: Vitamin D 25 Hydroxy (D3) 46.6 ng/mL (30.0-100.0)
[2024-03-31 04:11] LABS: Apolipoprotein B 89 mg/dL (<90)
== END ==
PROVIDERS: PCP Family Medicine; Referring Provider Family Medicine; Visit Provider Family Medicine
DX: K21.9 Gastro-esophageal reflux disease without esophagitis (principal); E78.5 Hyperlipidemia, unspecified; M81.0 Age-related osteoporosis without current pathological fracture; M25.511 Pain in right shoulder; M54.59 Other low back pain; E55.9 Vitamin D deficiency, unspecified; K44.9 Diaphragmatic hernia without obstruction or gangrene
CPT/HCPCS: 36415; 80053; 80061; 82172; 82306; 85025

== ENCOUNTER → 2024-07-26 14:33 | Outpatient (CLI) | payer MEDICARE, OTHER, SELFPAY ==
--- NOTE | 2024-07-26 14:34 | DI.MG.S_ITS ---
MM screening mammo BI: 07/26/2024. BI-RADS: 1 CLINICAL: 64-year old female for bilateral screening mammogram. Tyrer-Cuzick lifetime risk of 9.7%. No personal or first-degree family history of breast cancer. Current reported family history of breast cancer: maternal grandmother. PRIOR EXAMS 07/15/2023, 06/20/2022, 06/10/2022, 05/30/2021, 01/20/2020, 12/13/2018, 11/04/2017, 10/30/2016, 12/18/2014. MAMMOGRAPHY TECHNIQUE: 2D and 3D (tomosynthesis) digital mammographic views obtained, with additional images as needed for full coverage. Current study was also evaluated with a Computer Aided Detection (CAD) system. DENSITY C. The breasts are heterogeneously dense, which may obscure small masses. MAMMOGRAPHY FINDINGS Bilateral: No suspicious mass, asymmetry, microcalcification, or other abnormality seen. IMPRESSION: * No evidence of malignancy. RECOMMENDATIONS Bilateral * Annual screening mammography. OVERALL ASSESSMENT CATEGORY BI-RADS-1: Negative. The [employer] recommends annual screening mammography beginning at age 40 for women with average risk of breast cancer. ELECTRONICALLY SIGNED: Obie Tripp M.D. on 07/27/2024 at 10:44:09 AM PT Interpreting Station ID: [id number]
== END ==
PROVIDERS: PCP Family Medicine; Referring Provider Family Medicine; Visit Provider Family Medicine
DX: Z12.31 Encounter for screening mammogram for malignant neoplasm of breast (principal); R92.333 Mammographic heterogeneous density, bilateral breasts; Z80.3 Family history of malignant neoplasm of breast
CPT/HCPCS: 77063; 77067

== ENCOUNTER → 2024-12-06 09:23 | Outpatient (CLI) | payer MEDICARE, OTHER, SELFPAY ==
[2024-12-06 19:59] LABS: Influenza A - CEPHEID Flu A NEGATIVE (NEGATIVE); Influenza B - CEPHEID Flu B NEGATIVE (NEGATIVE)
[2024-12-06 20:14] LABS: COVID-19 CEPHEID 4-PLEX PCR Negative (Negative)
== END ==
PROVIDERS: PCP Family Medicine; Visit Provider Family Medicine
DX: J06.9 Acute upper respiratory infection, unspecified (principal); R50.9 Fever, unspecified
CPT/HCPCS: 87637; 87804

== ENCOUNTER → 2025-02-07 09:48 | Outpatient (CLI) | payer MEDICARE, OTHER, SELFPAY ==
--- NOTE | 2025-02-07 09:49 | DI.RAD.S_ITS ---
PROCEDURE: XR DEXA AXIAL SKELETON INDICATIONS: osteoporosis COMPARISON: [facility], , XR DEXA AXIAL SKELETON, 02/05/2023, 12:03. [facility], CR, XR DEXA AXIAL SKELETON, 08/09/2021, 14:38. FINDINGS: Lumbar Spine (L2 excluded): Bone mineral density 0.758 g/cm2, T score -2.7, previously -2.8. Left Femoral Neck: Bone mineral density is 0.521 g/cm2, T score -3. Left Hip: Bone mineral density 0.711 g/cm2, T score -1.9, unchanged. Fracture Risk Calculation (when applicable): Osteoporosis by Hounsfield units criteria. (T score greater or equal to -1.0 to: NORMAL) (T score from -1.1 to -2.4: OSTEOPENIA) (T score less than or equal to -2.5: OSTEOPOROSIS) IMPRESSION: Osteoporosis. Similar T-scores. Follow-up guidelines as follows: Osteoporosis: Consider a repeat DEXA and Vertebral Fracture Assessment (VFA) exam in 2 years or sooner if medically necessary, to reassess this patient's status. Osteopenia: Consider a repeat DEXA in 2-3 years to reassess this patient's status, or if there is a new clinical indication. Normal: Consider a repeat DEXA in 5 years or sooner, or if there is a new clinical indication. All treatment decisions require clinical judgment and consideration of individual patient factors, including patient preferences, comorbidities, previous drug use, risk factors not captured in the FRAX model (e.g., frailty, falls, vitamin D deficiency, increased bone turnover, interval significant decline in bone density ) and possible under- or over-estimation of fracture risk by FRAX. In addition, the NOF Guide recommends that FDA-approved medical therapies be considered in postmenopausal women and men age >= 50 years with a: * Hip or vertebral (clinical or morphometric) fracture * T-score of <=-2.5 at the spine or hip * Ten-year fracture probability by FRAX of >= 3% for hip fracture or >=20% for major osteoporotic fracture. Dictated by: Quinton Barakat M.D. on 02/07/2025 at 22:57 Approved by: Quinton Barakat M.D. on 02/07/2025 at 22:58
== END ==
LOC: RAD 09:49
PROVIDERS: PCP Family Medicine; Referring Provider Family Medicine; Visit Provider Family Medicine
DX: M81.0 Age-related osteoporosis without current pathological fracture (principal)
CPT/HCPCS: 77080